=== PATIENT | female | born 1935 | race Caucasian/White ===

== ENCOUNTER 2017-03-16 18:18 | Emergency (ER) | payer MEDICARE, BC ==
[2017-03-16 18:33] VITALS: BP 114/79
--- NOTE | 2017-03-16 19:02 | EDM.PDOC ---
ED HPI GENERAL MEDICAL PROBLEM - General Chief Complaint: ENT Problem Stated Complaint: NOSE BLEED CANNOT STOP Time Seen by Provider: 03/16/17 18:43 Source of Information: Reports: Patient History Limitations: Reports: No Limitations - History of Present Illness INITIAL COMMENTS - FREE TEXT/NARRATIVE: 81 yo presents with nose bleed that has been bleeding off and on for the last 3 days. denies trauma to nose. states she was staying at her sons house which was very dry. She has now returned home. current episode started 3 hours ago. Denies nausea or emesis. Has not had nose bleed before. She is her today with her son. - Related Data Allergies Allergy/AdvReac Type Severity Reaction Status Date / Time chloroxine [From Capitrol] Allergy Hives Verified 03/29/15 10:04 Home Meds: Home Meds *Calcium With Vit D 1 tab PO BID 09/14/13 [History] Aspirin [Malachi Chewable] 81 mg PO DAILY 09/14/13 [History] Carvedilol [Coreg] 25 mg PO DAILY 09/14/13 [History] Clopidogrel [Plavix] 75 mg PO DAILY 09/14/13 [History] Ezetimibe [Zetia] 10 mg PO DAILY 09/14/13 [History] Fish Oil/DHA/EPA [Fish Oil 1,200 MG] 1 each PO DAILY 09/14/13 [History] Furosemide [Lasix] 40 mg PO DAILY 09/14/13 [History] Nitroglycerin [Nitroquick] 0.4 mg SL ASDIRECTED PRN 09/14/13 [History] amLODIPine [Norvasc] 10 mg PO DAILY 09/14/13 [History] atorvaSTATin Calcium [Atorvastatin Calcium] 80 mg PO BEDTIME 09/14/13 [History] traMADol [Ultram] 50 mg PO TID 09/14/13 [History] Albuterol [Proventil Neb Soln] 0.63 mg NEB DAILY 03/29/15 [History] Polymyxin B Sulf/Trimethoprim [Polymyxin B-Tmp Eye Drops] 2 drop TOP BID [History] Isosorbide Mononitrate [Imdur] 30 mg PO DAILY 04/04/15 [History] Past Medical History Other HEENT History: bacteria in eye Other Respiratory History: home oxygen Other Dermatologic History: "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" 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 Social & Family History - Tobacco Use Smoking Status *Q: Never Smoker Years of Tobacco use: 25 Packs/Tins Daily: 1 Used Tobacco, but Quit: Yes Month Tobacco Last Used: may Second Hand Smoke Exposure: No - Recreational Drug Use Recreational Drug Use: No ED ROS ENT - Review of Systems Review Of Systems: See Below Constitutional: Denies: Fever, Chills, Fatigue HEENT: Denies: Throat Swelling Respiratory: Denies: Shortness of Breath Cardiovascular: Denies: Chest Pain ED EXAM, ENT - Physical Exam Exam: See Below General Appearance: Alert, WD/WN, No Apparent Distress Nose: Active Bleeding, Dried Blood Mouth/Throat: Normal Inspection, Normal Gums, Normal Lips, Normal Oropharynx Head: Atraumatic, Normocephalic Respiratory/Chest: No Respiratory Distress, Other (home O2 at 2 L) Cardiovascular: Regular Rate, Rhythm ED ENT PROCEDURES - Epistaxis Procedure Indication: Epistaxis, Uncontrolled Recent anticoagulants/antiplatlets: No Uncontrolled HTN: No Recent septal/nasal surgery: No Site of bleeding: Left Nare Clearing of clots: Patient Blew Nose Topical Meds: Other (afrin) Ice pack to area: No Chemical cautery: Silver Nitrate Topical (attempted without success) Anterior Packing: Other (7.5 rhino rocket) Complications: No Course - Vital Signs Last Recorded V/S: Last Vital Signs Temp 37.4 C 03/16/17 18:49 Pulse 82 03/16/17 18:49 Resp 20 03/16/17 18:49 BP 114/79 03/16/17 18:49 Pulse Ox 90 L 03/16/17 18:49 - Orders/Labs/Meds Labs: Laboratory Tests 03/16/17 Range/Units 19:02 Hgb 13.2 (12.0-15.0) g/dL Meds: Medications Discontinued Medications Generic Name Dose Route Start Last Admin Trade Name Freq PRN Reason Stop Dose Admin Oxymetazoline HCl 5 ml 03/16/17 19:37 03/16/17 19:48 Afrin Original 0.05% Nasal [place] TERESSA 03/16/17 19:38 5 ml ONETIME ONE Administration Silver Nitrate 1 each 03/16/17 19:25 03/16/17 19:48 Silver Nitrate TOP 03/16/17 19:26 1 each ONETIME ONE Administration Departure - Departure Time of Disposition: 20:02 Disposition: Home, Self-Care 01 Condition: Good Clinical Impression: Epistaxis - Discharge Information Referrals: PCP,None [Primary Care Provider] - Forms: ED Department Discharge Additional Instructions: Amoxicillin 500 mg twice daily for 3 days remove packing with primary care provider on Wed
[2017-03-16] MEDS ORDERED: Silver Nitrate Applicator Each TOP ONE (19:25)
[2017-03-16] MEDS ORDERED: Oxymetazoline 0.05% Nasal Spray 15 ML Bottle NAS ONE (19:37)
== END 2017-03-16 20:06 | disposition home or self-care (01) ==
LOC: JP.ED 18:18
DX: R04.0 Epistaxis (principal); Z87.891 Personal history of nicotine dependence; Z79.82 Long term (current) use of aspirin; Z79.02 Long term (current) use of antithrombotics/antiplatelets; Z79.899 Other long term (current) drug therapy; Z88.8 Allergy status to other drugs, medicaments and biological substances
CPT/HCPCS: 30903; 36415; 85018; 99284; A9270; 99283-25

== ENCOUNTER 2017-05-31 05:14 | Emergency (ER) | payer MEDICARE, BC ==
[2017-05-31 05:37] VITALS: BP 105/57
--- NOTE | 2017-05-31 05:39 | EDM.PDOC ---
ED HPI GENERAL MEDICAL PROBLEM - General Chief Complaint: ENT Problem Stated Complaint: NOSE BLEED Time Seen by Provider: 05/31/17 05:15 Source of Information: Reports: Patient History Limitations: Reports: No Limitations - History of Present Illness INITIAL COMMENTS - FREE TEXT/NARRATIVE: 81-year-old female with a left-sided epistaxis for the past hour. She is O2 dependent, delivered to nasal cannula and tends to have a dry nose in the wintertime. She needed a packing in the nares and February. No fevers or chills, no cold symptoms. Onset: Sudden Duration: Hour(s): (Over one hour) Severity: Moderate - Related Data Allergies Allergy/AdvReac Type Severity Reaction Status Date / Time chloroxine [From Capitrol] Allergy Hives Verified 03/29/15 10:04 Home Meds: Home Meds *Calcium With Vit D 1 tab PO BID 09/14/13 [History] Aspirin [Malachi Chewable] 81 mg PO DAILY 09/14/13 [History] Carvedilol [Coreg] 25 mg PO DAILY 09/14/13 [History] Clopidogrel [Plavix] 75 mg PO DAILY 09/14/13 [History] Ezetimibe [Zetia] 10 mg PO DAILY 09/14/13 [History] Fish Oil/DHA/EPA [Fish Oil 1,200 MG] 1 each PO DAILY 09/14/13 [History] Furosemide [Lasix] 40 mg PO DAILY 09/14/13 [History] Nitroglycerin [Nitroquick] 0.4 mg SL ASDIRECTED PRN 09/14/13 [History] amLODIPine [Norvasc] 10 mg PO DAILY 09/14/13 [History] atorvaSTATin Calcium [Atorvastatin Calcium] 80 mg PO BEDTIME 09/14/13 [History] traMADol [Ultram] 50 mg PO TID 09/14/13 [History] Polymyxin B Sulf/Trimethoprim [Polymyxin B-Tmp Eye Drops] 2 drop TOP BID [History] Isosorbide Mononitrate [Imdur] 30 mg PO DAILY 04/04/15 [History] Past Medical History Other HEENT History: bacteria in eye Other Respiratory History: home oxygen Other 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 Denies: Shortness of Breath Cardiovascular: Denies: Chest Pain GI/Abdominal: Denies: Nausea, Vomiting ED EXAM, ENT - Physical Exam Exam: See Below Exam Limited By: No Limitations General Appearance: Alert, No Apparent Distress Nose: Active Bleeding (Left nares) Head: Atraumatic Respiratory/Chest: No Respiratory Distress Course - Vital Signs Last Recorded V/S: Last Vital Signs Temp 99.1 F 05/31/17 05:35 Pulse 67 05/31/17 05:35 Resp 20 05/31/17 05:35 BP 105/57 L 05/31/17 05:35 Pulse Ox 90 L 05/31/17 06:00 - Re-Assessments/Exams Free Text/Narrative Re-Assessment/Exam: 05/31/17 05:36 After external pressure did not stop the bleeding after 10 minutes, the patient blew all the clots out of the right and left nares and a 5.5 cm rapid Rhino was placed and the left nares. Homeostasis was achieved and she tolerated the procedure well. She'll return in 2 mornings to have the packing removed. Departure - Departure Time of Disposition: 06:08 Disposition: Home, Self-Care 01 Condition: Good Clinical Impression: Epistaxis - Discharge Information Instructions: Nosebleed, [id number] Referrals: Eusebia Guzman CNM [Primary Care Provider] - Forms: ED Department Discharge Care Plan Goals: Return Friday morning for packing removal. Return sooner if bleeding recurs despite packing or you develop other concerns.
== END 2017-05-31 06:11 | disposition home or self-care (01) ==
LOC: JP.ED 05:14
DX: R04.0 Epistaxis (principal); Z88.8 Allergy status to other drugs, medicaments and biological substances; Z79.899 Other long term (current) drug therapy
CPT/HCPCS: 30901; 99283; 99283-25

== ENCOUNTER 2017-10-09 06:21 | Day surgery (SDC) | payer MEDICARE, BC ==
[2017-10-09] MEDS ORDERED: Sodium Chloride 0.9% 10 ML Syringe FLUSH PRN (07:00)
[2017-10-09 08:06] VITALS: BP 143/63
--- NOTE | 2017-10-09 08:19 | OR ---
DATE OF PROCEDURE: 10/09/2017 POSTOPERATIVE CARE: Postoperative care will be provided mainly at the [address] [place] [address] [facility] in conjunction with [facility]. PREOPERATIVE DIAGNOSIS: Cataract, right eye. POSTOPERATIVE DIAGNOSIS: Cataract, right eye. PROCEDURES: Cataract extraction, phacoemulsification with intraocular lens placement, right eye. ANESTHESIA: Topical and intracameral. ESTIMATED BLOOD LOSS: Minimal. COMPLICATIONS: None. PATHOLOGY SPECIMENS: None. SURGICAL FINDINGS: None. INDICATION FOR PROCEDURE: The patient is an 82-year-old female with history of a visually significant cataract in the right eye, which interfered with activities of daily living. This consisted of a nuclear sclerosis cataract. Following careful discussion of the risks, benefits and alternatives to cataract extraction with intraocular lens placement including blindness and , the patient elected to proceed, and informed, written consent was obtained prior to the procedure. DESCRIPTION OF THE PROCEDURE: The patient was previously identified, and a frank placed above the right eye. All sources, including the patient, indicated that the right eye was the correct eye. The patient was subsequently taken to the operating room where standard monitors were applied. The patient was then prepped and draped in the usual sterile fashion for ophthalmic surgery. Attention was first directed at the 12 o'clock position where a paracentesis port was fashioned. Shugar solution followed by Viscoat was instilled into the eye. Attention was then directed to the 8:30 position where a triplanar incision was made in a near-clear manner using a keratome. A continuous capsulorrhexis was then made using a combination of the cystotome and Utrata forceps. Hydrodissection was achieved using a balanced salt solution, and the lens rotated nicely. Phacoemulsification was then done using a modified [id number] technique without complication. Phaco time was 14.80 CDE. The remaining cortex was removed using the irrigation/aspiration handpiece. Provisc was then instilled into the eye. A Technis lens, model [id number], at 22.5 diopters was then placed in the capsular bag using an Pemberwick injector. The remaining viscoelastic was removed using the irrigation/aspiration forceps. All wounds were then checked and found to be watertight. The lid speculum and drapes were removed. Maxitrol ointment was placed in the patient's right eye, and the eye was shielded. The patient tolerated the procedure well. The patient was instructed to follow up tomorrow. All needle and sponge counts were correct at the end of the procedure. Mariya Wharton MD /[id number]
== END 2017-10-09 08:31 | disposition home or self-care (01) ==
LOC: JP.SDS 06:21
PROVIDERS: ATTEND Ophthalmology
DX: H25.11 Age-related nuclear cataract, right eye (principal); J44.9 Chronic obstructive pulmonary disease, unspecified; I11.0 Hypertensive heart disease with heart failure; I50.9 Heart failure, unspecified; Z88.8 Allergy status to other drugs, medicaments and biological substances
CPT/HCPCS: 66984; J7050

== ENCOUNTER 2018-06-22 16:51 | Emergency (ER) | payer MEDICARE, BC ==
[2018-06-22] MEDS ORDERED: Sodium Chloride 0.9% 10 ML Syringe FLUSH PRN (17:44)
[2018-06-22] MEDS ORDERED: Lactated Ringers 1,000 ML IV ONE (17:44)
[2018-06-22] MEDS ORDERED: Albuterol/Ipratropium 3.0-0.5 MG/3 ML Neb Soln NEB ONE (17:47)
--- NOTE | 2018-06-22 17:49 | EDM.PDOC ---
<OfficerMathew - Last Filed: 06/22/18 17:47> ED HPI GENERAL MEDICAL PROBLEM - General Chief Complaint: Respiratory Problem Stated Complaint: ILLNESS FROM THE CLINIC Time Seen by Provider: 06/22/18 17:39 Source of Information: Reports: Patient, Family, RN Notes Reviewed History Limitations: Reports: No Limitations - History of Present Illness INITIAL COMMENTS - FREE TEXT/NARRATIVE: 82-year-old female presents emergency department today complaint of shortness of breath, she has a known history of COPD is oxygen dependent she states over the last couple days she's had problems with her oxygen at home and has been hypoxic at home. She denies any fevers does produce thick yellow sputum - Related Data Allergies Allergy/AdvReac Type Severity Reaction Status Date / Time chloroxine [From Capitrol] Allergy Hives Verified 10/09/17 06:50 Home Meds: Home Meds Aspirin [Malachi Chewable] 81 mg PO DAILY 09/14/13 [History] Carvedilol [Coreg] 25 mg PO DAILY 09/14/13 [History] Clopidogrel [Plavix] 75 mg PO DAILY 09/14/13 [History] Ezetimibe [Zetia] 10 mg PO DAILY 09/14/13 [History] Fish Oil/DHA/EPA [Fish Oil 1,200 MG] 1 each PO DAILY 09/14/13 [History] Furosemide [Lasix] 40 mg PO DAILY 09/14/13 [History] Nitroglycerin [Nitroquick] 0.4 mg SL ASDIRECTED PRN 09/14/13 [History] amLODIPine [Norvasc] 10 mg PO DAILY 09/14/13 [History] atorvaSTATin Calcium [Atorvastatin Calcium] 80 mg PO BEDTIME 09/14/13 [History] traMADol [Ultram] 50 mg PO TID 09/14/13 [History] Isosorbide Mononitrate [Imdur] 30 mg PO DAILY 04/04/15 [History] Albuterol [Proventil Neb Soln] 1 ampule NEB Q4HR PRN 10/02/17 [History] Albuterol/Ipratropium [Combivent Respimat] 1 puff IH QID 10/02/17 [History] Alendronate [Fosamax] 70 mg PO WEEKLY 10/02/17 [History] Calcium Carbonate/Vitamin D3 [Calcium Carbonate/Vitamin D 600 MG-200 Unit] 1 tab PO DAILY 10/02/17 [History] Moxifloxacin [Vigamox 0.5% Ophth Soln] 1 drop EYERT QID 10/02/17 [History] prednisoLONE acetate [Pred Forte 1% Ophth Susp] 1 drop EYERT QID 10/02/17 [ History] Past Medical History HEENT History: Reports: Cataract, Impaired Vision Other HEENT History: bacteria in eye Cardiovascular History: Reports: Arrhythmia, High Cholesterol, Hypertension, Pacemaker, Stents Respiratory History: Reports: COPD, Sleep Apnea 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 History: Reports: Musculoskeletal History: Reports: Back Pain, Chronic, Fracture, Other (See Below ) Other Musculoskeletal History: steroid injections into both knees as needed Endocrine/Metabolic History: Reports: Obesity/BMI 30+ Dermatologic History: Reports: Benign Melanoma Other Dermatologic History: "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 - Infectious Disease History Infectious Disease History: Reports: Chicken Pox, Measles, Mumps - Past Surgical History HEENT Surgical History: Reports: Cataract Surgery Cardiovascular Surgical History: Reports: Carotid Endarterectomy, Pacer Respiratory Surgical History: Reports: None GI Surgical History: Reports: Appendectomy Endocrine Surgical History: Reports: None Musculoskeletal Surgical History: Reports: None Dermatological Surgical History: Reports: None Social & Family History - Tobacco Use Smoking Status *Q: Former Smoker Used Tobacco, but Quit: Yes Month/Year Tobacco Last Used: many years ago - Caffeine Use Caffeine Use: Reports: None - Recreational Drug Use Recreational Drug Use: No ED ROS GENERAL - Review of Systems Review Of Systems: See Below Constitutional: Denies: Fever, Chills HEENT: Reports: No Symptoms Respiratory: Reports: Shortness of Breath, Cough, Sputum Cardiovascular: Reports: No Symptoms GI/Abdominal: Reports: No Symptoms : Reports: No Symptoms Musculoskeletal: Reports: No Symptoms Skin: Reports: No Symptoms ED EXAM, GENERAL - Physical Exam Exam: See Below Exam Limited By: No Limitations General Appearance: Alert, WD/WN, No Apparent Distress Respiratory/Chest: No Respiratory Distress, No Accessory Muscle Use, Decreased Breath Sounds, Wheezing Cardiovascular: Regular Rate, Rhythm, No Murmur Back Exam: Normal Inspection, Full Range of Motion. No: CVA Tenderness (R), CVA Tenderness (L) Course - Vital Signs Last Recorded V/S: Last Vital Signs Temp 97 F 06/22/18 17:20 Pulse 64 06/22/18 19:54 Resp 11 L 06/22/18 19:54 BP 186/65 H 06/22/18 20:15 Pulse Ox 94 L 06/22/18 19:54 - Orders/Labs/Meds Orders: Active Orders 24 hr Category Date Time Status BIPAP [RT BiPAP/CPAP] [RC] ASDIRECTED Care 06/22/18 17:47 Active Peripheral IV Care [RC] . DIRECTED Care 06/22/18 17:45 Active RT Aerosol Therapy [RC] ASDIRECTED Care 06/22/18 17:47 Active Chest 1V Frontal [CR] Urgent Exams 06/22/18 17:44 Taken CULTURE RESPIRATORY + SMEAR [RM] Urgent Lab 06/22/18 17:44 Ordered Peripheral IV Insertion Adult [OM.PC] Urgent Oth 06/22/18 17:44 Ordered Labs: Laboratory Tests 06/22/18 06/22/18 06/22/18 Range/Units 17:44 17:44 17:44 WBC 12.5 H (4.5-11.0) K/uL RBC 4.92 (3.30-5.50) M/uL Hgb 13.9 (12.0-15.0) g/dL Hct 43.5 (36.0-48.0) % MCV 88 (80-98) fL MCH 28 (27-31) pg MCHC 32 (32-36) % Plt Count 299 (150-400) K/uL Neut % (Auto) 72 H (36-66) % Lymph % (Auto) 14 L (24-44) % Bates % (Auto) 10 H (2-6) % Eos % (Auto) 5 H (2-4) % Baso % (Auto) 1 (0-1) % Puncture Site Rt brachial ABG pH 7.458 H (7.350-7.450) ABG pCO2 38.6 (35.0-42.0) mmHg ABG pO2 80.0 (75.0-100.0) mmHg ABG HCO3 27.0 H (22.0-26.0) mmol/L ABG Total CO2 23.3 (21.0-25.0) mmol/L ABG O2 Saturation 95.1 (95.0-98.0) % ABG O2 Content 18.8 (15.0-23.0) %vol ABG Base Excess 3.5 mm/L ABG Hemoglobin 14.4 (12.0-16.0) g/dL ABG Oxyhemoglobin 92.8 % ABG Carboxyhemoglobin 1.7 H (0.0-1.6) % ABG Methemoglobin 0.7 % Alvin Test TNP O2 Delivery Device Simple mask Oxygen Flow Rate 8 L Sodium 140 (140-148) mmol/L Potassium 3.4 L (3.6-5.2) mmol/L Chloride 101 (100-108) mmol/L Carbon Dioxide 29 (21-32) mmol/L Anion Gap 13.4 (5.0-14.0) mmol/L BUN 19 H (7-18) mg/dL Creatinine 1.6 H (0.6-1.0) mg/dL Est Cr Clr Drug Dosing 0.97 mL/min Estimated GFR (MDRD) 31 L (>60) Glucose 111 H (74-106) mg/dL Calcium 10.9 H (8.5-10.1) mg/dL Total Bilirubin 0.7 (0.2-1.0) mg/dL AST 18 (15-37) U/L ALT 24 (12-78) U/L Alkaline Phosphatase 86 (46-116) U/L Troponin I 0.055 (0.000-0.056) ng/mL Total Protein 7.4 (6.4-8.2) g/dL Albumin 3.8 (3.4-5.0) g/dL Globulin 3.6 H (2.3-3.5) g/dL Albumin/Globulin Ratio 1.1 L (1.2-2.2) Meds: Medications Discontinued Medications Generic Name Dose Route Start Last Admin Trade Name Freq PRN Reason Stop Dose Admin Albuterol/Ipratropium 3 ml 06/22/18 17:47 06/22/18 18:12 Duoneb 3.0-0.5 Mg/3 Ml NEB 06/22/18 17:48 3 ml ONETIME ONE Administration Furosemide 80 mg 06/22/18 18:31 06/22/18 18:46 Lasix IVPUSH 06/22/18 18:32 80 mg ONETIME ONE Administration Lactated Ringer's 1,000 mls @ 500 mls/hr 06/22/18 17:44 06/22/18 18:13 Ringers, Lactated IV 06/22/18 19:43 500 mls/hr ASDIRECTED ONE Administration Methylprednisolone Sodium Succinate 125 mg 06/22/18 18:04 06/22/18 18:13 Solu-Medrol IVPUSH 06/22/18 18:05 125 mg ONETIME ONE Administration Sodium Chloride 10 ml 06/22/18 17:44 06/22/18 18:19 Saline Flush FLUSH 10 ml ASDIRECTED PRN Administration Keep Vein Open Departure - Departure Disposition: Home, Self-Care 01 Clinical Impression: COPD exacerbation, Bronchitis Congestive heart failure Qualifiers: Heart failure type: combined systolic and diastolic Heart failure chronicity: acute on chronic Qualified Code(s): I50.43 - Acute on chronic combined systolic (congestive) and diastolic (congestive) heart failure - Discharge Information Instructions: Chronic Obstructive Pulmonary Disease, [id number] Referrals: PCP,None [Primary Care Provider] - Forms: ED Department Discharge Care Plan Goals: Take antibiotic as prescribed, start tonight. Starting tomorrow, take 4 pills of prednisone with your first meal daily for at least 5 days. Take 2 doses of Lasix, the second dose in the afternoon, for 3 consecutive days. Increase oxygen as needed, and return anytime if worsening despite treatment. <Marco Rodriguez - Last Filed: 06/22/18 22:16> Course - Re-Assessments/Exams Free Text/Narrative Re-Assessment/Exam: 06/22/18 19:26 Care turned over from Officer. Chest x-ray shows cardiomegaly and mild basilar atelectasis, blood gases were reassuring and relatively normal. Initially she needed BiPAP to keep saturations in the mid 90s. Labs returned reassuring as well. She was given 80 mg of IV Lasix along with 125 mg of IV Solu -Medrol. Within 60 minutes she appears 500 mL of urine. She wants to try to go home. 06/22/18 20:28 Patient urinated 5 times over the course of 2 hours, with 3 L of nasal cannula without BiPAP she was maintaining O2 saturations 88%. This is her baseline at home. She has O2 saturation monitors at home and never gets above 90. Her ABGs were reassuring, near normal. The rest of her labs were reassuring as well. She does have chronic renal failure. She'll be discharged with the recommendation of taking Lasix twice daily for the next 3 days, she'll be placed on a course of Zithromax, and 40 mg of prednisone daily for 5 days. Departure - Departure Time of Disposition: 20:43 Condition: Fair
[2018-06-22] MEDS ORDERED: methylPREDNISolone Sodium Succinate 125 MG/2 ML SDV IVPUSH ONE (18:04)
[2018-06-22] MEDS ORDERED: Furosemide 40 MG/4 ML VIAL IVPUSH ONE (18:31)
[2018-06-22 20:16] VITALS: BP 186/65
== END 2018-06-22 20:43 | disposition home or self-care (01) ==
LOC: JP.ED 16:51
DX: J44.1 Chronic obstructive pulmonary disease with (acute) exacerbation (principal); I11.0 Hypertensive heart disease with heart failure; I50.43 Acute on chronic combined systolic (congestive) and diastolic (congestive) heart failure; J40 Bronchitis, not specified as acute or chronic; Z88.8 Allergy status to other drugs, medicaments and biological substances; Z79.82 Long term (current) use of aspirin; Z79.899 Other long term (current) drug therapy; E78.00 Pure hypercholesterolemia, unspecified; Z95.0 Presence of cardiac pacemaker; Z87.891 Personal history of nicotine dependence
CPT/HCPCS: 36600; 71045; 80053; 82803; 84484; 85025; 87804; 94640; 94660; 96361; 96374; 96375; 99284; J1940; J2930; J7120; J7620-GY

== ENCOUNTER 2018-08-13 16:06 | Emergency (ER) | payer MEDICARE, BC ==
--- NOTE | 2018-08-13 18:16 | EDM.PDOC ---
ED HPI GENERAL MEDICAL PROBLEM - General Chief Complaint: General Stated Complaint: CONFUSION Time Seen by Provider: 08/13/18 18:05 Source of Information: Reports: Patient, Family History Limitations: Reports: Other (incomplete records) - History of Present Illness INITIAL COMMENTS - FREE TEXT/NARRATIVE: 82 yo female is brought in by her daughter for increasing confusion since late Friday. Had a doctor's appt on . that they missed. Has not discussed this increased confusion with her primary. Normally doctors in [place]. Has no specific complaints other than no BM for 3 days, anorexia, and confusion. Lives with daughter on [place]. Can only walk short distances due to weakness. Onset: Gradual Onset Date: 08/10/18 Duration: Day(s):, Getting Worse Location: Reports: Generalized Quality: Reports: Other (no pain) Severity: Moderate (weakness) Improves with: Reports: None Worsens with: Reports: Other (time) Context: Reports: Other (see HPI) Associated Symptoms: Reports: Confusion, Loss of Appetite, Weakness. 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: Other (see below) (none) - Related Data Allergies Allergy/AdvReac Type Severity Reaction Status Date / Time chloroxine [From Capitrol] Allergy Hives Verified 08/13/18 17:18 Home Meds: Home Meds Aspirin [Malachi Chewable] 81 mg PO DAILY 09/14/13 [History] Carvedilol [Coreg] 25 mg PO DAILY 09/14/13 [History] Clopidogrel [Plavix] 75 mg PO DAILY 09/14/13 [History] Ezetimibe [Zetia] 10 mg PO DAILY 09/14/13 [History] Fish Oil/DHA/EPA [Fish Oil 1,200 MG] 1 each PO DAILY 09/14/13 [History] Furosemide [Lasix] 40 mg PO DAILY 09/14/13 [History] Nitroglycerin [Nitroquick] 0.4 mg SL ASDIRECTED PRN 09/14/13 [History] amLODIPine [Norvasc] 10 mg PO DAILY 09/14/13 [History] atorvaSTATin Calcium [Atorvastatin Calcium] 80 mg PO BEDTIME 09/14/13 [History] traMADol [Ultram] 50 mg PO TID 09/14/13 [History] Isosorbide Mononitrate [Imdur] 30 mg PO DAILY 04/04/15 [History] Albuterol [Proventil Neb Soln] 1 ampule NEB Q4HR PRN 10/02/17 [History] Albuterol/Ipratropium [Combivent Respimat] 1 puff IH QID 10/02/17 [History] Alendronate [Fosamax] 70 mg PO WEEKLY 10/02/17 [History] Calcium Carbonate/Vitamin D3 [Calcium Carbonate/Vitamin D 600 MG-200 Unit] 1 tab PO DAILY 10/02/17 [History] Past Medical History HEENT History: Reports: Cataract, Impaired Vision Other HEENT History: bacteria in eye Cardiovascular History: Reports: Arrhythmia, High Cholesterol, Hypertension, Pacemaker, Stents Respiratory History: Reports: COPD, Sleep Apnea Other Respiratory History: home oxygen 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 History: Reports: None 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: Musculoskeletal History: Reports: Back Pain, Chronic, Fracture, Other (See Below ) Other Musculoskeletal History: steroid injections into both knees as needed Endocrine/Metabolic History: Reports: Obesity/BMI 30+ Dermatologic History: Reports: Benign Melanoma Other Dermatologic History: "bumps" 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 - Infectious Disease History Infectious Disease History: Reports: Chicken Pox, Measles, Mumps - Past Surgical History HEENT Surgical History: Reports: Cataract Surgery Cardiovascular Surgical History: Reports: Carotid Endarterectomy, Pacer Respiratory Surgical History: Reports: None GI Surgical History: Reports: Appendectomy Endocrine Surgical History: Reports: None Musculoskeletal Surgical History: Reports: None Dermatological Surgical History: Reports: None Social & Family History - Tobacco Use Smoking Status *Q: Former Smoker Used Tobacco, but Quit: Yes Month/Year Tobacco Last Used: 20 - Caffeine Use Caffeine Use: Reports: None - Recreational Drug Use Recreational Drug Use: No ED ROS GENERAL - Review of Systems Review Of Systems: See Below Constitutional: Reports: Weakness, Decreased Appetite HEENT: Reports: No Symptoms Respiratory: Reports: No Symptoms Cardiovascular: Reports: No Symptoms Endocrine: Reports: No Symptoms GI/Abdominal: Reports: Constipation (last BM 3 days ago), Decreased Appetite. Denies: Abdominal Pain, Black Stool, Bloody Stool, Diarrhea, Distension, Flatus , Hematemesis, Hematochezia, Melena, Nausea, Vomiting : Reports: No Symptoms Musculoskeletal: Reports: No Symptoms Skin: Reports: No Symptoms Neurological: Reports: No Symptoms Psychiatric: Reports: Confusion ED EXAM, GENERAL - Physical Exam Exam: See Below Exam Limited By: No Limitations General Appearance: Alert, WD/WN, No Apparent Distress Eye Exam: Bilateral Eye: Normal Inspection Ears: Normal External Exam, Normal Canal, Hearing Grossly Normal, Normal TMs Ear Exam: Bilateral Ear: Auricle Normal, Canal Normal, TM normal Nose: Normal Inspection, No Blood Throat/Mouth: Normal Inspection, Normal Lips, Normal Oropharynx, Normal Voice, No Airway Compromise Head: Atraumatic, Normocephalic Neck: Normal Inspection Respiratory/Chest: No Respiratory Distress, Lungs Clear, No Accessory Muscle Use , Decreased Breath Sounds Cardiovascular: Regular Rate, Rhythm, No Edema, Systolic Murmur GI/Abdominal: Normal Bowel Sounds, Soft, Non-Tender, No Distention Back Exam: Normal Inspection. No: CVA Tenderness (R), CVA Tenderness (L) Extremities: Normal Inspection, Normal Range of Motion, Non-Tender, No Pedal Edema Neurological: Alert, Oriented, CN II-XII Intact, Normal Cognition, No Motor/ Sensory Deficits Psychiatric: Normal Affect, Normal Mood Skin Exam: Warm, Dry, Intact, Normal Color, No Rash EKG INTERPRETATION EKG Date: 08/13/18 Time: 19:25 Rhythm: Other (paced rhythm) Rate (Beats/Min): 64 [place]: Normal P-Wave: Present QRS: Normal ST-T: Normal QT: Normal Comparison: NA - No Prior EKG Course - Vital Signs Text/Narrative:: Discussed @ Dr. Handy, hospitalist at [facility] @ 1950h Last Recorded V/S: Last Vital Signs Temp 36.7 C 08/13/18 17:22 Pulse 60 08/13/18 19:35 Resp 8 L 08/13/18 19:35 BP 158/68 H 08/13/18 19:35 Pulse Ox 90 L 08/13/18 19:35 - Orders/Labs/Meds Orders: Active Orders 24 hr Category Date Time Status EKG Documentation Completion [RC] ASDIRECTED Care 08/13/18 19:01 Active CULTURE URINE [RM] Stat Lab 08/13/18 18:23 Received NS + KCl 20mEq/L [Normal Saline with 20 mEq KCl] 1,000 Med 08/13/18 19:00 Active ml IV ASDIRECTED EKG 12 Lead [EK] Routine Ther 08/13/18 19:00 Ordered Medication Orders Potassium Chloride/Sodium Chloride (Normal Saline With 20 Meq Kcl) 1,000 mls @ 125 mls/hr IV ASDIRECTED ERICKA Last Admin: 08/13/18 19:28 Dose: 125 mls/hr Labs: Laboratory Tests 08/13/18 08/13/18 08/13/18 Range/Units 18:04 18:31 18:31 WBC 11.0 (4.5-11.0) K/uL RBC 4.44 (3.30-5.50) M/uL Hgb 12.9 (12.0-15.0) g/dL Hct 39.4 (36.0-48.0) % MCV 89 (80-98) fL MCH 29 (27-31) pg MCHC 33 (32-36) % Plt Count 268 (150-400) K/uL Sodium 139 L (140-148) mmol/L Potassium 3.2 L (3.6-5.2) mmol/L Chloride 99 L (100-108) mmol/L Carbon Dioxide 38 H (21-32) mmol/L Anion Gap 5.2 (5.0-14.0) mmol/L BUN 27 H (7-18) mg/dL Creatinine 2.1 H (0.6-1.0) mg/dL Est Cr Clr Drug Dosing 16.50 mL/min Estimated GFR (MDRD) 22 L (>60) Glucose 106 (74-106) mg/dL Calcium 16.1 H* D (8.5-10.1) mg/dL Magnesium (1.8-2.4) mg/dL Troponin I 0.146 H* (0.000-0.056) ng/mL Urine Color Yellow Urine Appearance Clear Urine pH 7.0 (4.5-8.0) Ur Specific [place] 1.010 (1.008-1.030) Urine Protein Negative (NEGATIVE) mg/dL Urine Glucose (UA) Normal (NEGATIVE) mg/dL Urine Ketones Negative (NEGATIVE) mg/dL Urine Occult Blood Negative (NEGATIVE) Urine Nitrite Negative (NEGATIVE) Urine Bilirubin Negative (NEGATIVE) Urine Urobilinogen Normal (NORMAL) mg/dL Ur Leukocyte Esterase Moderate (NEGATIVE) Urine RBC 5-10 H (0-5) Urine WBC 10-20 H (0-5) Ur Epithelial Cells Few Amorphous Sediment Few Urine Bacteria Not seen Urine Mucus Not seen 08/13/18 Range/Units 19:21 WBC (4.5-11.0) K/uL RBC (3.30-5.50) M/uL Hgb (12.0-15.0) g/dL Hct (36.0-48.0) % MCV (80-98) fL MCH (27-31) pg MCHC (32-36) % Plt Count (150-400) K/uL Sodium (140-148) mmol/L Potassium (3.6-5.2) mmol/L Chloride (100-108) mmol/L Carbon Dioxide (21-32) mmol/L Anion Gap (5.0-14.0) mmol/L BUN (7-18) mg/dL Creatinine (0.6-1.0) mg/dL Est Cr Clr Drug Dosing mL/min Estimated GFR (MDRD) (>60) Glucose (74-106) mg/dL Calcium (8.5-10.1) mg/dL Magnesium 1.5 L (1.8-2.4) mg/dL Troponin I (0.000-0.056) ng/mL Urine Color Urine Appearance Urine pH (4.5-8.0) Ur Specific [place] (1.008-1.030) Urine Protein (NEGATIVE) mg/dL Urine Glucose (UA) (NEGATIVE) mg/dL Urine Ketones (NEGATIVE) mg/dL Urine Occult Blood (NEGATIVE) Urine Nitrite (NEGATIVE) Urine Bilirubin (NEGATIVE) Urine Urobilinogen (NORMAL) mg/dL Ur Leukocyte Esterase (NEGATIVE) Urine RBC (0-5) Urine WBC (0-5) Ur Epithelial Cells Amorphous Sediment Urine Bacteria Urine Mucus Meds: Medications Generic Name Dose Route Start Last Admin Trade Name Freq PRN Reason Stop Dose Admin Potassium Chloride/Sodium Chloride 1,000 mls @ 125 mls/hr 08/13/18 19:00 19:28 Normal Saline With 20 Meq Kcl IV 125 mls/hr ASDIRECTED ERICKA Administration Discontinued Medications Generic Name Dose Route Start Last Admin Trade Name Freq PRN Reason Stop Dose Admin Bisacodyl 10 mg 08/13/18 18:39 Dulcolax RECTAL 08/13/18 18:40 ONETIME ONE Cephalexin 500 mg 08/13/18 18:21 08/13/18 18:26 Keflex PO 08/13/18 18:22 500 mg ONETIME ONE Administration Glycerin 1 supp 08/13/18 18:39 Sani-Supp Adult RECTAL 08/13/18 18:40 ONETIME ONE - Radiology Interpretation Free Text/Narrative:: CXR-nothing acute Departure - Departure Time of Disposition: 20:03 Disposition: DC/Tfer to Acute Hospital 02 Condition: Fair Clinical Impression: Elevated troponin, Hypercalcemia, Weakness, Hypokalemia, Chronic renal failure , stage 4 (severe) - Discharge Information *PRESCRIPTION DRUG MONITORING PROGRAM REVIEWED*: No *COPY OF PRESCRIPTION DRUG MONITORING REPORT IN PATIENT LIZZY: No Referrals: PCP,None [Primary Care Provider] - Forms: ED Department Discharge - My Orders Last 24 Hours: My Active Orders 08/13/18 18:23 CULTURE URINE [RM] Stat 08/13/18 19:00 NS + KCl 20mEq/L [Normal Saline with 20 mEq KCl] 1,000 ml IV ASDIRECTED EKG 12 Lead [EK] Routine 08/13/18 19:01 EKG Documentation Completion [RC] ASDIRECTED - Assessment/Plan Last 24 Hours: My Active Orders 08/13/18 18:23 CULTURE URINE [RM] Stat 08/13/18 19:00 NS + KCl 20mEq/L [Normal Saline with 20 mEq KCl] 1,000 ml IV ASDIRECTED EKG 12 Lead [EK] Routine 08/13/18 19:01 EKG Documentation Completion [RC] ASDIRECTED
[2018-08-13] MEDS ORDERED: Cephalexin 250 MG Cap PO ONE (18:21)
[2018-08-13] MEDS ORDERED: Glycerin Adult 2.1 GM Supp RECTAL ONE (18:39)
[2018-08-13] MEDS ORDERED: Bisacodyl 10 MG Supp RECTAL ONE (18:39)
[2018-08-13] MEDS ORDERED: NS + KCl 20mEq/L 1,000 ML IV SCH (19:00)
--- NOTE | 2018-08-13 19:26 | CRLCR ---
INDICATION: Confusion TECHNIQUE: Chest 2 views COMPARISON: Chest x-ray 06/22/2018 FINDINGS: Cardiovascular and mediastinum: Mild cardiomegaly with atherosclerotic calcification and left-sided dual lead pacemaker with tips at the right atrial and right ventricular level. Lungs and pleural spaces: Mild hyperinflation without pleural effusion or pneumothorax Bones and soft tissues: Old compression fracture mid thoracic spine. IMPRESSION: 1. Mild hyperinflation without acute pulmonary consolidation. 2. Cardiomegaly with atherosclerotic calcification. Dictated by Kian Woodward MD @ Aug 13 2018 7:21PM Signed by Dr. Kian Woodward @ Aug 13 2018 7:23PM
[2018-08-13 19:36] VITALS: BP 158/68
== END 2018-08-13 21:15 ==
LOC: JP.ED 16:06
DX: I12.9 Hypertensive chronic kidney disease with stage 1 through stage 4 chronic kidney disease, or unspecified chronic kidney disease (principal); N18.4 Chronic kidney disease, stage 4 (severe); E87.6 Hypokalemia; E83.52 Hypercalcemia; R53.1 Weakness; J44.9 Chronic obstructive pulmonary disease, unspecified; E78.00 Pure hypercholesterolemia, unspecified; Z87.891 Personal history of nicotine dependence; R79.89 Other specified abnormal findings of blood chemistry; Z88.8 Allergy status to other drugs, medicaments and biological substances; Z79.82 Long term (current) use of aspirin; Z95.0 Presence of cardiac pacemaker; Z79.899 Other long term (current) drug therapy; Z95.5 Presence of coronary angioplasty implant and graft
CPT/HCPCS: 36415; 71046; 80048; 81001; 83735; 84484; 85027; 87086; 93005; 93010; 96360; 96361; 99285-25; A9270-GY; J3480

== ENCOUNTER 2018-08-20 16:59 | Emergency (ER) | payer MEDICARE, BC ==
[2018-08-20] MEDS ORDERED: Metoprolol Tartrate 50 MG Tab PO ONE (18:19)
--- NOTE | 2018-08-20 18:22 | EDM.PDOC ---
ED HPI GENERAL MEDICAL PROBLEM - General Chief Complaint: Cardiovascular Problem Stated Complaint: HIGH BLOOD PRESSURE/HIGH PULSE Time Seen by Provider: 08/20/18 18:05 Source of Information: Reports: Family, Old Records History Limitations: Reports: No Limitations - History of Present Illness INITIAL COMMENTS - FREE TEXT/NARRATIVE: 82 yo female is brought in by her family for BP elevation. She has no sx's of this. Was recently hospitalized in [facility] for hypercalcemia, a non-STEMI , CHF, and CRF. During that admission Coreg was stopped and metoprolol was started. Her BP has been running high since discharge and they have been slowly raising her metoprolol dose. Family became alarmed when her BP was over 200 systolic even with a 25 mg increase in her Toprol XL dose. They usually get there primary care in , but since this is closer have been coming here when they want to utilize ER services. 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) (metoprolol dose increased by 25 mg today) - Related Data Allergies Allergy/AdvReac Type Severity Reaction Status Date / Time chloroxine [From Capitrol] Allergy Hives Verified 08/13/18 17:18 Home Meds: Home Meds Aspirin [Malachi Chewable] 81 mg PO DAILY 09/14/13 [History] Clopidogrel [Plavix] 75 mg PO DAILY 09/14/13 [History] Ezetimibe [Zetia] 10 mg PO DAILY 09/14/13 [History] Fish Oil/DHA/EPA [Fish Oil 1,200 MG] 1 each PO DAILY 09/14/13 [History] Furosemide [Lasix] 40 mg PO DAILY PRN 09/14/13 [History] Nitroglycerin [Nitroquick] 0.4 mg SL ASDIRECTED PRN 09/14/13 [History] atorvaSTATin Calcium [Atorvastatin Calcium] 80 mg PO BEDTIME 09/14/13 [History] traMADol [Ultram] 50 mg PO TID PRN 09/14/13 [History] Isosorbide Mononitrate [Imdur] 60 mg PO DAILY 04/04/15 [History] Albuterol [Proventil Neb Soln] 1 ampule NEB Q4HR PRN 10/02/17 [History] Albuterol/Ipratropium [Combivent Respimat] 1 puff IH QID 10/02/17 [History] Magnesium Chloride [Mag-64] 64 mg PO BID 08/20/18 [History] Metoprolol Succinate [Toprol XL 100mg] 100 mg PO DAILY 08/20/18 [History] Past Medical History HEENT History: Reports: Cataract, Impaired Vision Other HEENT History: bacteria in eye Cardiovascular History: Reports: Arrhythmia, High Cholesterol, Hypertension, Pacemaker, Stents Respiratory History: Reports: COPD, Sleep Apnea Other Respiratory History: home oxygen 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 History: Reports: 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: Musculoskeletal History: Reports: Back Pain, Chronic, Fracture, Other (See Below ) Other Musculoskeletal History: steroid injections into both knees as needed Endocrine/Metabolic History: Reports: Obesity/BMI 30+ Dermatologic History: Reports: Benign Melanoma Other Dermatologic History: "bumps" 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 coordinator 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 look at - Infectious Disease History Infectious Disease History: Reports: Chicken Pox, Measles, Mumps - Past Surgical History HEENT Surgical History: Reports: Cataract Surgery Cardiovascular Surgical History: Reports: Carotid Endarterectomy, Pacer Respiratory Surgical History: Reports: None GI Surgical History: Reports: Appendectomy Endocrine Surgical History: Reports: None Musculoskeletal Surgical History: Reports: None Dermatological Surgical History: Reports: None Social & Family History - Caffeine Use Caffeine Use: Reports: None ED ROS GENERAL - Review of Systems Review Of Systems: See Below Constitutional: Reports: No Symptoms HEENT: Reports: No Symptoms Respiratory: Reports: No Symptoms Cardiovascular: Reports: No Symptoms Endocrine: Reports: No Symptoms GI/Abdominal: Reports: No Symptoms : Reports: No Symptoms Musculoskeletal: Reports: No Symptoms Skin: Reports: No Symptoms Neurological: Reports: No Symptoms Psychiatric: Reports: No Symptoms ED EXAM, GENERAL - Physical Exam Exam: See Below Exam Limited By: No Limitations General Appearance: Alert, WD/WN, No Apparent Distress Eye Exam: Bilateral Eye: Normal Inspection Ears: Normal External Exam, Normal Canal, Hearing Grossly Normal, Normal TMs Ear Exam: Bilateral Ear: Auricle Normal, Canal Normal, TM normal Nose: Normal Inspection, Normal Mucosa, No Blood Throat/Mouth: Normal Inspection, Normal Lips, Normal Oropharynx, Normal Voice, No Airway Compromise Head: Atraumatic, Normocephalic Neck: Normal Inspection Respiratory/Chest: No Respiratory Distress, Lungs Clear, Normal Breath Sounds, No Accessory Muscle Use Cardiovascular: Regular Rate, Rhythm, No Edema, Systolic Murmur. No: No Murmur GI/Abdominal: Normal Bowel Sounds, Soft, Non-Tender, No Distention Back Exam: Normal Inspection Extremities: Normal Inspection, Normal Range of Motion, Non-Tender, No Pedal Edema Neurological: Alert, Oriented, CN II-XII Intact, Normal Cognition, No Motor/ Sensory Deficits Psychiatric: Normal Affect, Normal Mood Skin Exam: Warm, Dry, Intact, Normal Color, No Rash Course - Vital Signs Text/Narrative:: BP systolic under 200 with the additional metoprolol tartrate dose of 50 mg po, has no OQUENDO, SOB, or CP. No dizziness. Last Recorded V/S: Last Vital Signs Temp 37.1 C 08/20/18 18:25 Pulse 72 08/20/18 19:45 Resp 16 08/20/18 18:25 BP 190/79 H 08/20/18 19:45 Pulse Ox 92 L 08/20/18 19:45 - Orders/Labs/Meds Meds: Medications Discontinued Medications Generic Name Dose Route Start Last Admin Trade Name Freq PRN Reason Stop Dose Admin Metoprolol Tartrate 50 mg 08/20/18 18:19 08/20/18 18:51 Lopressor PO 08/20/18 18:20 50 mg ONETIME ONE Administration Departure - Departure Time of Disposition: 19:50 Disposition: Home, Self-Care 01 Condition: Fair Clinical Impression: HTN, goal below 150/90 Instructions: Hypertension, [id number] Referrals: Jackelyn Hinojosa MD [Primary Care Provider] - Forms: ED Department Discharge Additional Instructions: Starting tomorrow morning increase your metoprolol succinate(Toprol XL) to 150 mg every 24 hrs. Stay in communication with your primary regarding further changes in her BP regimen. Needs to be seen in the ER for headache, chest pains , or shortness of breath, or stroke symptoms.
[2018-08-20 19:46] VITALS: BP 190/79
== END 2018-08-20 20:13 | disposition home or self-care (01) ==
LOC: JP.ED 16:59
DX: I10 Essential (primary) hypertension (principal); Z88.8 Allergy status to other drugs, medicaments and biological substances; Z79.899 Other long term (current) drug therapy
CPT/HCPCS: 99282; A9270

== ENCOUNTER 2018-08-26 12:16 | Emergency (ER) | payer MEDICARE, BC ==
[2018-08-26 15:04] VITALS: BP 185/79
--- NOTE | 2018-08-26 15:13 | CR ---
CHEST: Portable CLINICAL HISTORY:Leukocytosis COMPARISON:08/13/2018 FINDINGS: Heart size and pulmonary vascularity are normal. Patient has a permanent cardiac pacer in place. Lung montague are clear. Impression: Prior cardiac pacer No acute cardiopulmonary process or significant change from prior study
--- NOTE | 2018-08-26 15:37 | EDM.PDOC ---
ED HPI GENERAL MEDICAL PROBLEM - General Chief Complaint: General Stated Complaint: POSSIBLE STROKE Time Seen by Provider: 08/26/18 13:10 - History of Present Illness INITIAL COMMENTS - FREE TEXT/NARRATIVE: 82-year-old female has a history of poorly controlled hypertension. She had a systolic blood pressure of over 200 this morning and was complaining of some headache in the mid forehead area as well as a little bit of tingling of the left wrist. She was told by her primary provider to come to the emergency room. The time she reached the emergency room her blood pressures came down to 180/60 and she was symptom free. She was hungry and wanted some food. She does have a history of COPD and is oxygen dependent on 3 L. Also has chronic kidney disease and CHF. She denies any chest pain or shortness of breath. - Related Data Allergies Allergy/AdvReac Type Severity Reaction Status Date / Time chloroxine [From Capitrol] Allergy Hives Verified 08/26/18 12:37 Home Meds: Home Meds Aspirin [Malachi Chewable] 81 mg PO DAILY 09/14/13 [History] Clopidogrel [Plavix] 75 mg PO DAILY 09/14/13 [History] Ezetimibe [Zetia] 10 mg PO DAILY 09/14/13 [History] Fish Oil/DHA/EPA [Fish Oil 1,200 MG] 1 each PO DAILY 09/14/13 [History] Furosemide [Lasix] 40 mg PO DAILY PRN 09/14/13 [History] Nitroglycerin [Nitroquick] 0.4 mg SL ASDIRECTED PRN 09/14/13 [History] atorvaSTATin Calcium [Atorvastatin Calcium] 80 mg PO BEDTIME 09/14/13 [History] traMADol [Ultram] 50 mg PO TID PRN 09/14/13 [History] Isosorbide Mononitrate [Imdur] 60 mg PO DAILY 04/04/15 [History] Albuterol [Proventil Neb Soln] 1 ampule NEB Q4HR PRN 10/02/17 [History] Albuterol/Ipratropium [Combivent Respimat] 1 puff IH QID 10/02/17 [History] Magnesium Chloride [Mag-64] 64 mg PO BID 08/20/18 [History] Metoprolol Succinate [Toprol XL 100mg] 200 mg PO DAILY 08/20/18 [History] Past Medical History HEENT History: Reports: Cataract, Impaired Vision Other HEENT History: bacteria in eye Cardiovascular History: Reports: Arrhythmia, Heart Murmur, High Cholesterol, Hypertension, [place], Pacemaker, Stents Respiratory History: Reports: COPD, Sleep Apnea Other Respiratory History: home oxygen 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 History: Reports: None Genitourinary History: Reports: Acute Renal Failure [employer] History: Reports: Musculoskeletal History: Reports: Back Pain, Chronic, Fracture, Other (See Below ) Other Musculoskeletal History: steroid injections into both knees as needed Endocrine/Metabolic History: Reports: Obesity/BMI 30+ Hematologic History: Reports: Anticoagulation Therapy Oncologic (Cancer) History: Reports: Other (See Below) Other Oncologic History: skin cancer Dermatologic History: Reports: Benign Melanoma Other Dermatologic History: "bumps" [employer] will look at - Infectious Disease History Infectious Disease History: Reports: Chicken Pox, Measles, Mumps - Past Surgical History HEENT Surgical History: Reports: Cataract Surgery Cardiovascular Surgical History: Reports: Carotid Endarterectomy, Pacer GI Surgical History: Reports: Appendectomy Dermatological Surgical History: Reports: None Social & Family History - Tobacco Use Smoking Status *Q: Never Smoker - Caffeine Use Caffeine Use: Reports: None - Recreational Drug Use Recreational Drug Use: No ED ROS GENERAL - Review of Systems Review Of Systems: See Below Constitutional: Reports: No Symptoms HEENT: Reports: No Symptoms Respiratory: Reports: No Symptoms Cardiovascular: Reports: No Symptoms GI/Abdominal: Reports: No Symptoms : Reports: No Symptoms Neurological: Reports: No Symptoms ED EXAM, GENERAL - Physical Exam Exam: See Below Exam Limited By: No Limitations General Appearance: Alert Eye Exam: Bilateral Eye: PERRL Ears: Normal External Exam, Normal Canal Ear Exam: Bilateral Ear: Canal Normal, TM normal Nose: Normal Inspection Throat/Mouth: Normal Inspection Head: Atraumatic, Normocephalic, Facial Tenderness Neck: Supple, Non-Tender Respiratory/Chest: No Respiratory Distress, Lungs Clear, Normal Breath Sounds Cardiovascular: Normal Peripheral Pulses, No Edema, Systolic Murmur GI/Abdominal: Normal Bowel Sounds, Non-Tender (Female) Exam: Other (No flank tenderness.) Neurological: Alert, Oriented, CN II-XII Intact, Normal Cognition, Normal Reflexes, No Motor/Sensory Deficits Course - Vital Signs Last Recorded V/S: Last Vital Signs Temp 36.7 C 08/26/18 12:41 Pulse 70 08/26/18 12:41 Resp 22 H 08/26/18 15:03 BP 185/79 H 08/26/18 15:03 Pulse Ox 91 L 08/26/18 15:03 - Orders/Labs/Meds Orders: Active Orders 24 hr Category Date Time Status EKG Documentation Completion [RC] ASDIRECTED Care 08/26/18 13:29 Active EKG 12 Lead [EK] Routine Ther 08/26/18 13:27 Ordered Labs: Laboratory Tests 08/26/18 08/26/18 08/26/18 Range/Units 13:35 13:35 15:03 WBC 11.9 H (4.5-11.0) K/uL RBC 3.99 (3.30-5.50) M/uL Hgb 11.9 L (12.0-15.0) g/dL Hct 36.3 (36.0-48.0) % MCV 91 (80-98) fL MCH 30 (27-31) pg MCHC 33 (32-36) % Plt Count 405 H (150-400) K/uL Neut % (Auto) 75 H (36-66) % Lymph % (Auto) 13 L (24-44) % [place] % (Auto) 9 H (2-6) % Eos % (Auto) 3 (2-4) % Baso % (Auto) 0 (0-1) % Sodium 139 L (140-148) mmol/L Potassium 4.6 (3.6-5.2) mmol/L Chloride 106 (100-108) mmol/L Carbon Dioxide 24 (21-32) mmol/L Anion Gap 13.6 (5.0-14.0) mmol/L BUN 12 D (7-18) mg/dL Creatinine 1.1 H (0.6-1.0) mg/dL Est Cr Clr Drug Dosing 31.49 mL/min Estimated GFR (MDRD) 47 L (>60) Glucose 104 (74-106) mg/dL Calcium 9.6 D (8.5-10.1) mg/dL Total Bilirubin 0.8 (0.2-1.0) mg/dL AST 15 (15-37) U/L ALT 20 (12-78) U/L Alkaline Phosphatase 75 (46-116) U/L Total Protein 6.7 (6.4-8.2) g/dL Albumin 3.3 L (3.4-5.0) g/dL Globulin 3.4 (2.3-3.5) g/dL Albumin/Globulin Ratio 1.0 L (1.2-2.2) Urine Color Yellow Urine Appearance Cloudy Urine pH 6.0 (4.5-8.0) Ur Specific [place] 1.015 (1.008-1.030) Urine Protein Trace (NEGATIVE) mg/dL Urine Glucose (UA) Normal (NEGATIVE) mg/dL Urine Ketones Negative (NEGATIVE) mg/dL Urine Occult Blood Negative (NEGATIVE) Urine Nitrite Negative (NEGATIVE) Urine Bilirubin Negative (NEGATIVE) Urine Urobilinogen Normal (NORMAL) mg/dL Ur Leukocyte Esterase Large (NEGATIVE) Urine RBC 0-5 (0-5) Urine WBC 10-20 H (0-5) Ur Epithelial Cells Few Amorphous Sediment Not seen Urine Bacteria Few Urine Mucus Few Departure - Departure Time of Disposition: 15:45 Disposition: Home, Self-Care 01 Condition: Good Clinical Impression: Hypertension - Discharge Information Referrals: PCP,None [Primary Care Provider] - Additional Instructions: Patient has an appointment to follow-up with her primary provider in [place] in a few days. She will stay compliant with medications. - My Orders Last 24 Hours: My Active Orders 08/26/18 13:27 EKG 12 Lead [EK] Routine 08/26/18 13:29 EKG Documentation Completion [RC] ASDIRECTED - Assessment/Plan Last 24 Hours: My Active Orders 08/26/18 13:27 EKG 12 Lead [EK] Routine 08/26/18 13:29 EKG Documentation Completion [RC] ASDIRECTED Assessment:: Patient was given a meal and had no further symptoms. She did have 10-20 WBCs in her urine however this is consistent with prior UAs and she is not having urinary symptoms. Her blood pressure has come down and she is symptom free indicating it may be related to her blood pressure.
== END 2018-08-26 16:03 | disposition home or self-care (01) ==
LOC: JP.ED 12:16
DX: I10 Essential (primary) hypertension (principal); E78.00 Pure hypercholesterolemia, unspecified; J44.9 Chronic obstructive pulmonary disease, unspecified; Z79.01 Long term (current) use of anticoagulants; Z79.899 Other long term (current) drug therapy; Z79.82 Long term (current) use of aspirin; Z88.8 Allergy status to other drugs, medicaments and biological substances
CPT/HCPCS: 36415; 71045; 71045-26; 80053; 81001; 85025; 93005; 93010; 99284-25

== ENCOUNTER 2020-02-03 12:59 | Emergency (ER) | payer MEDICARE, BC ==
[2020-02-03 13:06] VITALS: BP 144/56; PULSE 61
--- NOTE | 2020-02-03 13:31 | EDM.PDOC ---
ED HPI GENERAL MEDICAL PROBLEM - General Chief Complaint: Syncope Stated Complaint: MEDICAL VIA [place] Time Seen by Provider: 02/03/20 13:21 Source of Information: Reports: Patient, EMS, RN Notes Reviewed History Limitations: Reports: No Limitations - History of Present Illness INITIAL COMMENTS - FREE TEXT/NARRATIVE: This 84-year-old female presents emergency department today following a syncopal event at a friend's house, she admits she did not eat this morning was feeling fine sat down next thing she knew she awoke on the floor her friends describe her passing out then she hit her head on a piece of furniture on the way down. She is not complaining any pain no shortness of breath no nausea vomiting she states she feels she is at her normal self - Related Data Allergies Allergy/AdvReac Type Severity Reaction Status Date / Time chloroxine [From Capitrol] Allergy Hives Verified 02/03/20 13:06 Home Meds: Home Meds Aspirin [Malachi Chewable] 81 mg PO DAILY 09/14/13 [History] Clopidogrel [Plavix] 75 mg PO DAILY 09/14/13 [History] Ezetimibe [Zetia] 10 mg PO DAILY 09/14/13 [History] Fish Oil/DHA/EPA [Fish Oil 1,200 MG] 1 each PO DAILY 09/14/13 [History] Nitroglycerin [Nitroquick] 0.4 mg SL ASDIRECTED PRN 09/14/13 [History] atorvaSTATin Calcium [Atorvastatin Calcium] 80 mg PO BEDTIME 09/14/13 [History] traMADol [Ultram] 50 mg PO TID PRN 09/14/13 [History] Isosorbide Mononitrate [Imdur] 60 mg PO DAILY 04/04/15 [History] Albuterol [Proventil Neb Soln] 1 ampule NEB Q4HR PRN 10/02/17 [History] Albuterol/Ipratropium [Combivent Respimat] 1 puff IH QID 10/02/17 [History] Magnesium Chloride [Mag-64] 64 mg PO BID 08/20/18 [History] Metoprolol Succinate [Toprol XL 100mg] 200 mg PO DAILY 08/20/18 [History] Fluticasone/Umeclidin/Vilanter [Trelegy Ellipta 100-62.5-25] 1 each INH DAILY 02/03/20 [History] Past Medical History HEENT History: Reports: Cataract, Impaired Vision Other HEENT History: bacteria in eye Cardiovascular History: Reports: Arrhythmia, CAD, Heart Murmur, High Cholesterol, Hypertension, [place], Pacemaker, Stents Respiratory History: Reports: COPD, Sleep Apnea Other Respiratory History: home oxygen 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 History: Reports: None Genitourinary History: Reports: Acute Renal Failure [employer] History: Reports: Musculoskeletal History: Reports: Back Pain, Chronic, Fracture, Other (See Below) Other Musculoskeletal History: steroid injections into both knees as needed Endocrine/Metabolic History: Reports: Obesity/BMI 30+ Hematologic History: Reports: Anticoagulation Therapy Oncologic (Cancer) History: Reports: Other (See Below) Other Oncologic History: skin cancer Dermatologic History: Reports: Benign Melanoma Other Dermatologic History: "bumps" 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 - Infectious Disease History Infectious Disease History: Reports: Chicken Pox, Measles, Mumps - Past Surgical History HEENT Surgical History: Reports: Cataract Surgery Cardiovascular Surgical History: Reports: Carotid Endarterectomy, Pacer GI Surgical History: Reports: Appendectomy Dermatological Surgical History: Reports: None Social & Family History - Tobacco Use Smoking Status *Q: Former Smoker Used Tobacco, but Quit: Yes Month/Year Tobacco Last Used: 10 - Caffeine Use Caffeine Use: Reports: None ED ROS GENERAL - Review of Systems Review Of Systems: See Below Constitutional: Reports: No Symptoms HEENT: Reports: No Symptoms Respiratory: Reports: No Symptoms Cardiovascular: Reports: Syncope GI/Abdominal: Reports: No Symptoms Neurological: Reports: No Symptoms ED EXAM, HEAD INJURY - Physical Exam Exam: See Below Exam Limited By: No Limitations General Appearance: Alert, WD/WN, No Apparent Distress Head: Normocephalic, Facial Ecchymosis, Facial Swelling, Facial Tenderness Nexus Criteria: No: Posterior, Midline Cervical Tenderness, Evidence of Intoxication, Altered Level of Consciousness, Focal Neurological Deficit, Painful Distraction Injuries Eyes: Bilateral Eye: EOMI, Normal Inspection, PERRL Respiratory: No Respiratory Distress, Lungs Clear, Normal Breath Sounds, No Accessory Muscle Use, Chest Non-Tender Cardiovascular: Regular Rate, Rhythm, No Murmur Course - Vital Signs Last Recorded V/S: Last Vital Signs Temp 98 F 02/03/20 13:03 Pulse 61 02/03/20 13:03 Resp 20 02/03/20 13:03 BP 144/56 H 02/03/20 13:03 Pulse Ox 88 L 02/03/20 13:03 - Orders/Labs/Meds Labs: Laboratory Tests 02/03/20 02/03/20 Range/Units 13:39 13:39 WBC 12.4 H (4.5-11.0) K/uL RBC 4.91 (3.30-5.50) M/uL Hgb 14.8 D (12.0-15.0) g/dL Hct 46.7 (36.0-48.0) % MCV 95 (80-98) fL MCH 30 (27-31) pg MCHC 32 (32-36) % Plt Count 298 (150-400) K/uL Neut % (Auto) 78 H (36-66) % Lymph % (Auto) 10 L (24-44) % [place] % (Auto) 8 H (2-6) % Eos % (Auto) 4 (2-4) % Baso % (Auto) 0 (0-1) % Sodium 144 (140-148) mmol/L Potassium 4.5 (3.6-5.2) mmol/L Chloride 107 (100-108) mmol/L Carbon Dioxide 29 (21-32) mmol/L Anion Gap 8.3 (5.0-14.0) mmol/L BUN 26 H D (7-18) mg/dL Creatinine 1.6 H (0.6-1.0) mg/dL Est Cr Clr Drug Dosing 20.88 mL/min Estimated GFR (MDRD) 31 L (>60) Glucose 118 H (74-106) mg/dL Calcium 9.5 (8.5-10.1) mg/dL Troponin I < 0.017 (0.000-0.056) ng/mL Departure - Departure Time of Disposition: 14:41 Disposition: Home, Self-Care 01 Condition: Fair Clinical Impression: Syncope Qualifiers: Syncope type: unspecified Qualified Code(s): R55 - Syncope and collapse - Discharge Information Instructions: Syncope, [id number] Referrals: PCP,None [Primary Care Provider] - Forms: ED Department Discharge Additional Instructions: Please followup with your primary care provider in 3-5 days if not better, please call return to the emergency department with worsening of symptoms. Sepsis Event Note (ED) - Evaluation Sepsis Screening Result: No Definite Risk - Focused Exam Vital Signs: Vital Signs Temp Pulse Resp BP Pulse Ox 02/03/20 13:03 98 F 61 20 144/56 H 88 L - Assessment/Plan Plan: Assessment Acuity = acute Site and laterality = syncopal event Etiology = probably related to not eating Manifestations = none Location of injury = Home Lab values = CBC unremarkable creatinine elevated 1.6 consistent with chronic renal failure stage G3 B Plan Follow-up with primary care in the next 3 to 5 days if not better This note was dictated using [employer] voice recognition software please call with any questions on syntax or grammar.
--- NOTE | 2020-02-03 14:22 | CT ---
Head wo Cont, Max Facial Sinus wo Cont CLINICAL HISTORY: Head injury COMPARISON: 2006 TECHNIQUE: Transverse scans were obtained from the base of the skull through the vertex without IV contrast on a multislice, multidetector CT scanner. Auto dosage reduction and iterative reconstruction techniques employed. FINDINGS: No focal abnormal parenchymal densities are identified. There is no mass effect, hemorrhage, or extraaxial collection. There is some periventricular and subcortical lucency. The basal cisterns and sulci over the convexities are prominent. The ventricles are prominent. IMPRESSION: Age-related atrophy Chronic ischemic microvascular changes No acute intracranial abnormalities Head wo Cont, Max Facial Sinus wo Cont : TECHNIQUE: Axial tomographic images were obtained from the upper calvarium through the upper neck, without iodinated contrast enhancement. Auto dosage reduction and iterative reconstruction techniques employed. FINDINGS: The paranasal sinuses are clear. The orbits have normal contour. No bony fractures identified. Fat planes are well preserved. Survey metacarpal arteries are intact. Nasal bones are intact. Anterior nasal spine has a normal contour. Mandible is free of fracture IMPRESSION: No fracture identified
== END 2020-02-03 15:09 | disposition home or self-care (01) ==
LOC: JP.ED 12:59
DX: R55 Syncope and collapse (principal); I25.10 Atherosclerotic heart disease of native coronary artery without angina pectoris; E78.00 Pure hypercholesterolemia, unspecified; I10 Essential (primary) hypertension; I25.2 Old myocardial infarction; J44.9 Chronic obstructive pulmonary disease, unspecified; E66.9 Obesity, unspecified; Z99.81 Dependence on supplemental oxygen; Z87.891 Personal history of nicotine dependence; Z68.31 Body mass index [BMI] 31.0-31.9, adult; Z79.82 Long term (current) use of aspirin; Z79.899 Other long term (current) drug therapy; Z95.5 Presence of coronary angioplasty implant and graft; Z79.02 Long term (current) use of antithrombotics/antiplatelets; Z91.048 Other nonmedicinal substance allergy status
CPT/HCPCS: 36415; 70450; 70450-26; 70486; 70486-26; 80048; 84484; 85025; 99283; 99285-25

== ENCOUNTER 2020-02-10 15:16 | Emergency (ER) | payer MEDICARE, BC ==
[2020-02-10] MEDS ORDERED: methylPREDNISolone Sodium Succinate 125 MG/2 ML SDV IVPUSH ONE (15:34)
--- NOTE | 2020-02-10 16:28 | EDM.PDOC ---
ED HPI GENERAL MEDICAL PROBLEM - General Chief Complaint: Syncope Stated Complaint: MEDICAL Time Seen by Provider: 02/10/20 16:22 Source of Information: Reports: Patient History Limitations: Reports: No Limitations, Altered Mental Status - History of Present Illness INITIAL COMMENTS - FREE TEXT/NARRATIVE: 84 years old female patient brought in by her friend for evaluation. History collected from her friend, and her daughter because of the patient altered mental status. Patient was going out with her friend and suddenly became unresponsive. Her daughter stated that the patient had similar episodes every 1- 2 month and usually recover within 30-45 minutes. No report of any cough or fever. No report of any chest pain. No report of any trauma or injury. Patient arrived to the ER, altered mental status, less responsive. O2 sats 70% on her home 3 L of oxygen. Blood pressure has been stable. Afebrile. - Related Data Allergies Allergy/AdvReac Type Severity Reaction Status Date / Time chloroxine [From Capitrol] Allergy Hives Verified 02/03/20 13:06 Home Meds: Home Meds Aspirin [Malachi Chewable] 81 mg PO DAILY 09/14/13 [History] Clopidogrel [Plavix] 75 mg PO DAILY 09/14/13 [History] Ezetimibe [Zetia] 10 mg PO DAILY 09/14/13 [History] Fish Oil/DHA/EPA [Fish Oil 1,200 MG] 1 each PO DAILY 09/14/13 [History] Nitroglycerin [Nitroquick] 0.4 mg SL ASDIRECTED PRN 09/14/13 [History] atorvaSTATin Calcium [Atorvastatin Calcium] 80 mg PO BEDTIME 09/14/13 [History] traMADol [Ultram] 50 mg PO TID PRN 09/14/13 [History] Isosorbide Mononitrate [Imdur] 60 mg PO DAILY 04/04/15 [History] Albuterol [Proventil Neb Soln] 1 ampule NEB Q4HR PRN 10/02/17 [History] Albuterol/Ipratropium [Combivent Respimat] 1 puff IH QID 10/02/17 [History] Magnesium Chloride [Mag-64] 64 mg PO BID 08/20/18 [History] Metoprolol Succinate [Toprol XL 100mg] 200 mg PO DAILY 08/20/18 [History] Fluticasone/Umeclidin/Vilanter [Trelegy Ellipta 100-62.5-25] 1 each INH DAILY 02/03/20 [History] Past Medical History HEENT History: Reports: Cataract, Impaired Vision Other HEENT History: bacteria in eye Cardiovascular History: Reports: Arrhythmia, CAD, Heart Murmur, High Cholesterol, Hypertension, [place], Pacemaker, Stents Respiratory History: Reports: COPD, Sleep Apnea Other Respiratory History: home oxygen 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 History: Reports: None Genitourinary History: Reports: Acute Renal Failure 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: Musculoskeletal History: Reports: Back Pain, Chronic, Fracture, Other (See Below) Other Musculoskeletal History: steroid injections into both knees as needed Endocrine/Metabolic History: Reports: Obesity/BMI 30+ Hematologic History: Reports: Anticoagulation Therapy Oncologic (Cancer) History: Reports: Other (See Below) Other Oncologic History: skin cancer Dermatologic History: Reports: Benign Melanoma Other Dermatologic History: "bumps" 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 - Physical Exam Exam: See Below Exam Limited By: Altered Mental Status General Appearance: Lethargic, Obtunded. No: Severe Distress Eye Exam: Bilateral Eye: EOMI, PERRL Nose: Normal Inspection, Normal Mucosa, No Blood Head Exam: Atraumatic, Normocephalic. No: Scalp Lacerations Neck: Normal Inspection, Supple, Non-Tender, Full Range of Motion Respiratory/Chest: Respiratory Distress, Decreased Breath Sounds, Wheezing. No: Crackles, Stridor, Retractions Cardiovascular: Normal Peripheral Pulses, Regular Rate, Rhythm, No Edema, No Gallop, No Murmur, No Rub GI/Abdominal: Normal Bowel Sounds, Soft, Non-Tender, No Organomegaly, No Distention, No Abnormal Bruit, No Mass Neuro Exam (Abbreviated): Confused, Disoriented, Slow to Respond (Initially the patient was confused and less responsive then gradually became more responsive, alert and oriented) Extremities: Normal Inspection, Other (Trace lower extremity edema) Skin Exam: Warm, Dry, Intact, Normal Color, No Rash Course - Vital Signs Last Recorded V/S: Last Vital Signs Temp 35.9 C L 02/10/20 15:16 Pulse 60 02/10/20 17:23 Resp 15 02/10/20 17:11 BP 104/60 02/10/20 17:23 Pulse Ox 90 L 02/10/20 17:23 - Orders/Labs/Meds Orders: Active Orders 24 hr Category Date Time Status Chest 1V Frontal [CR] Urgent Exams 02/10/20 15:30 Taken CULTURE BLOOD [BC] Urgent Lab 02/10/20 15:40 Received CULTURE BLOOD [BC] Urgent Lab 02/10/20 15:45 Received Blood Culture x2 Reflex Set [OM.PC] Urgent Oth 02/10/20 15:30 Ordered EKG 12 Lead [EK] Urgent Ther 02/10/20 15:43 Ordered Labs: Laboratory Tests 02/10/20 02/10/20 02/10/20 Range/Units 15:25 15:25 15:25 WBC 14.3 H (4.5-11.0) K/uL RBC 4.97 (3.30-5.50) M/uL Hgb 15.6 H (12.0-15.0) g/dL Hct 48.0 (36.0-48.0) % MCV 97 (80-98) fL MCH 31 (27-31) pg MCHC 33 (32-36) % Plt Count 337 (150-400) K/uL Neut % (Auto) 63 (36-66) % Lymph % (Auto) 23 L (24-44) % Harper % (Auto) 11 H (2-6) % Eos % (Auto) 3 (2-4) % Baso % (Auto) 1 (0-1) % PT 11.0 (9.5-12.0) sec INR 1.01 (0.80-1.20) D-Dimer, Quantitative 875 H (0.0-400.0) ng/mL Puncture Site ABG pH (7.350-7.450) ABG pCO2 (35.0-42.0) mmHg ABG pO2 (75.0-100.0) mmHg ABG HCO3 (22.0-26.0) mmol/L ABG Total CO2 (21.0-25.0) mmol/L ABG O2 Saturation (95.0-98.0) % ABG O2 Content (15.0-23.0) %vol ABG Base Excess mm/L ABG Hemoglobin (12.0-16.0) g/dL ABG Oxyhemoglobin % ABG Carboxyhemoglobin (0.0-1.6) % ABG Methemoglobin % Alvin Test O2 Delivery Device Sodium (140-148) mmol/L Potassium (3.6-5.2) mmol/L Chloride (100-108) mmol/L Carbon Dioxide (21-32) mmol/L Anion Gap (5.0-14.0) mmol/L BUN (7-18) mg/dL Creatinine (0.6-1.0) mg/dL Est Cr Clr Drug Dosing mL/min Estimated GFR (MDRD) (>60) Glucose (74-106) mg/dL Lactic Acid (0.4-2.0) mmol/L Calcium (8.5-10.1) mg/dL Magnesium (1.8-2.4) mg/dL Total Bilirubin (0.2-1.0) mg/dL AST (15-37) U/L ALT (12-78) U/L Alkaline Phosphatase (46-116) U/L Ammonia (11-32) mmol/L Troponin I (0.000-0.056) ng/mL C-Reactive Protein (0.0-0.3) mg/dL NT-Pro-B Natriuret Pep (5-450) pg/mL Total Protein (6.4-8.2) g/dL Albumin (3.4-5.0) g/dL Globulin (2.3-3.5) g/dL Albumin/Globulin Ratio (1.2-2.2) Urine Color (YELLOW) Urine Appearance (CLEAR) Urine pH (5.0-8.0) Ur Specific [place] (1.008-1.030) Urine Protein (NEGATIVE) mg/dL Urine Glucose (UA) (NEGATIVE) mg/dL Urine Ketones (NEGATIVE) mg/dL Urine Occult Blood (NEGATIVE) Urine Nitrite (NEGATIVE) Urine Bilirubin (NEGATIVE) Urine Urobilinogen (0.2-1.0) EU/dL Ur Leukocyte Esterase (NEGATIVE) Urine RBC (0-5) Urine WBC (0-5) Ur Epithelial Cells Amorphous Sediment Urine Bacteria Urine Mucus Ethyl Alcohol mg/dL SARS-CoV-2 RNA (MELANIE) (NEGATIVE) 02/10/20 02/10/20 02/10/20 Range/Units 15:25 15:25 15:25 WBC (4.5-11.0) K/uL RBC (3.30-5.50) M/uL Hgb (12.0-15.0) g/dL Hct (36.0-48.0) % MCV (80-98) fL MCH (27-31) pg MCHC (32-36) % Plt Count (150-400) K/uL Neut % (Auto) (36-66) % Lymph % (Auto) (24-44) % Harper % (Auto) (2-6) % Eos % (Auto) (2-4) % Baso % (Auto) (0-1) % PT (9.5-12.0) sec INR (0.80-1.20) D-Dimer, Quantitative (0.0-400.0) ng/mL Puncture Site ABG pH (7.350-7.450) ABG pCO2 (35.0-42.0) mmHg ABG pO2 (75.0-100.0) mmHg ABG HCO3 (22.0-26.0) mmol/L ABG Total CO2 (21.0-25.0) mmol/L ABG O2 Saturation (95.0-98.0) % ABG O2 Content (15.0-23.0) %vol ABG Base Excess mm/L ABG Hemoglobin (12.0-16.0) g/dL ABG Oxyhemoglobin % ABG Carboxyhemoglobin (0.0-1.6) % ABG Methemoglobin % Alvin Test O2 Delivery Device Sodium 140 (140-148) mmol/L Potassium 3.9 (3.6-5.2) mmol/L Chloride 102 (100-108) mmol/L Carbon Dioxide 20 L (21-32) mmol/L Anion Gap 21.9 H (5.0-14.0) mmol/L BUN 24 H (7-18) mg/dL Creatinine 1.9 H (0.6-1.0) mg/dL Est Cr Clr Drug Dosing 17.57 mL/min Estimated GFR (MDRD) 25 L (>60) Glucose 200 H (74-106) mg/dL Lactic Acid 8.0 H (0.4-2.0) mmol/L Calcium 9.0 (8.5-10.1) mg/dL Magnesium 2.7 H D (1.8-2.4) mg/dL Total Bilirubin 0.8 (0.2-1.0) mg/dL AST 23 (15-37) U/L ALT 39 D (12-78) U/L Alkaline Phosphatase 98 (46-116) U/L Ammonia 15 (11-32) mmol/L Troponin I 0.245 H* (0.000-0.056) ng/mL C-Reactive Protein 0.09 (0.0-0.3) mg/dL NT-Pro-B Natriuret Pep (5-450) pg/mL Total Protein 7.0 (6.4-8.2) g/dL Albumin 3.3 L (3.4-5.0) g/dL Globulin 3.7 H (2.3-3.5) g/dL Albumin/Globulin Ratio 0.9 L (1.2-2.2) Urine Color (YELLOW) Urine Appearance (CLEAR) Urine pH (5.0-8.0) Ur Specific [place] (1.008-1.030) Urine Protein (NEGATIVE) mg/dL Urine Glucose (UA) (NEGATIVE) mg/dL Urine Ketones (NEGATIVE) mg/dL Urine Occult Blood (NEGATIVE) Urine Nitrite (NEGATIVE) Urine Bilirubin (NEGATIVE) Urine Urobilinogen (0.2-1.0) EU/dL Ur Leukocyte Esterase (NEGATIVE) Urine RBC (0-5) Urine WBC (0-5) Ur Epithelial Cells Amorphous Sediment Urine Bacteria Urine Mucus Ethyl Alcohol mg/dL SARS-CoV-2 RNA (MELANIE) (NEGATIVE) 02/10/20 02/10/20 02/10/20 Range/Units 15:25 15:25 15:30 WBC (4.5-11.0) K/uL RBC (3.30-5.50) M/uL Hgb (12.0-15.0) g/dL Hct (36.0-48.0) % MCV (80-98) fL MCH (27-31) pg MCHC (32-36) % Plt Count (150-400) K/uL Neut % (Auto) (36-66) % Lymph % (Auto) (24-44) % Harper % (Auto) (2-6) % Eos % (Auto) (2-4) % Baso % (Auto) (0-1) % PT (9.5-12.0) sec INR (0.80-1.20) D-Dimer, Quantitative (0.0-400.0) ng/mL Puncture Site Rt.radial ABG pH 7.306 L (7.350-7.450) ABG pCO2 34.1 L (35.0-42.0) mmHg ABG pO2 121.0 H (75.0-100.0) mmHg ABG HCO3 16.5 L (22.0-26.0) mmol/L ABG Total CO2 14.6 L (21.0-25.0) mmol/L ABG O2 Saturation 97.5 (95.0-98.0) % ABG O2 Content 20.8 (15.0-23.0) %vol ABG Base Excess -8.5 mm/L ABG Hemoglobin 15.4 (12.0-16.0) g/dL ABG Oxyhemoglobin 95.7 % ABG Carboxyhemoglobin 1.1 (0.0-1.6) % ABG Methemoglobin 0.7 % Alvin Test Passed O2 Delivery Device Bipap Sodium (140-148) mmol/L Potassium (3.6-5.2) mmol/L Chloride (100-108) mmol/L Carbon Dioxide (21-32) mmol/L Anion Gap (5.0-14.0) mmol/L BUN (7-18) mg/dL Creatinine (0.6-1.0) mg/dL Est Cr Clr Drug Dosing mL/min Estimated GFR (MDRD) (>60) Glucose (74-106) mg/dL Lactic Acid (0.4-2.0) mmol/L Calcium (8.5-10.1) mg/dL Magnesium (1.8-2.4) mg/dL Total Bilirubin (0.2-1.0) mg/dL AST (15-37) U/L ALT (12-78) U/L Alkaline Phosphatase (46-116) U/L Ammonia (11-32) mmol/L Troponin I (0.000-0.056) ng/mL C-Reactive Protein (0.0-0.3) mg/dL NT-Pro-B Natriuret Pep 65140 H (5-450) pg/mL Total Protein (6.4-8.2) g/dL Albumin (3.4-5.0) g/dL Globulin (2.3-3.5) g/dL Albumin/Globulin Ratio (1.2-2.2) Urine Color (YELLOW) Urine Appearance (CLEAR) Urine pH (5.0-8.0) Ur Specific [place] (1.008-1.030) Urine Protein (NEGATIVE) mg/dL Urine Glucose (UA) (NEGATIVE) mg/dL Urine Ketones (NEGATIVE) mg/dL Urine Occult Blood (NEGATIVE) Urine Nitrite (NEGATIVE) Urine Bilirubin (NEGATIVE) Urine Urobilinogen (0.2-1.0) EU/dL Ur Leukocyte Esterase (NEGATIVE) Urine RBC (0-5) Urine WBC (0-5) Ur Epithelial Cells Amorphous Sediment Urine Bacteria Urine Mucus Ethyl Alcohol < 3 mg/dL SARS-CoV-2 RNA (MELANIE) (NEGATIVE) 02/10/20 02/10/20 Range/Units 17:29 17:35 WBC (4.5-11.0) K/uL RBC (3.30-5.50) M/uL Hgb (12.0-15.0) g/dL Hct (36.0-48.0) % MCV (80-98) fL MCH (27-31) pg MCHC (32-36) % Plt Count (150-400) K/uL Neut % (Auto) (36-66) % Lymph % (Auto) (24-44) % Harper % (Auto) (2-6) % Eos % (Auto) (2-4) % Baso % (Auto) (0-1) % PT (9.5-12.0) sec INR (0.80-1.20) D-Dimer, Quantitative (0.0-400.0) ng/mL Puncture Site ABG pH (7.350-7.450) ABG pCO2 (35.0-42.0) mmHg ABG pO2 (75.0-100.0) mmHg ABG HCO3 (22.0-26.0) mmol/L ABG Total CO2 (21.0-25.0) mmol/L ABG O2 Saturation (95.0-98.0) % ABG O2 Content (15.0-23.0) %vol ABG Base Excess mm/L ABG Hemoglobin (12.0-16.0) g/dL ABG Oxyhemoglobin % ABG Carboxyhemoglobin (0.0-1.6) % ABG Methemoglobin % Alvin Test O2 Delivery Device Sodium (140-148) mmol/L Potassium (3.6-5.2) mmol/L Chloride (100-108) mmol/L Carbon Dioxide (21-32) mmol/L Anion Gap (5.0-14.0) mmol/L BUN (7-18) mg/dL Creatinine (0.6-1.0) mg/dL Est Cr Clr Drug Dosing mL/min Estimated GFR (MDRD) (>60) Glucose (74-106) mg/dL Lactic Acid (0.4-2.0) mmol/L Calcium (8.5-10.1) mg/dL Magnesium (1.8-2.4) mg/dL Total Bilirubin (0.2-1.0) mg/dL AST (15-37) U/L ALT (12-78) U/L Alkaline Phosphatase (46-116) U/L Ammonia (11-32) mmol/L Troponin I (0.000-0.056) ng/mL C-Reactive Protein (0.0-0.3) mg/dL NT-Pro-B Natriuret Pep (5-450) pg/mL Total Protein (6.4-8.2) g/dL Albumin (3.4-5.0) g/dL Globulin (2.3-3.5) g/dL Albumin/Globulin Ratio (1.2-2.2) Urine Color Yellow (YELLOW) Urine Appearance Cloudy A (CLEAR) Urine pH 6.5 (5.0-8.0) Ur Specific [place] 1.025 (1.008-1.030) Urine Protein 100 H (NEGATIVE) mg/dL Urine Glucose (UA) Negative (NEGATIVE) mg/dL Urine Ketones Negative (NEGATIVE) mg/dL Urine Occult Blood Trace-intact H (NEGATIVE) Urine Nitrite Positive H (NEGATIVE) Urine Bilirubin Negative (NEGATIVE) Urine Urobilinogen 0.2 (0.2-1.0) EU/dL Ur Leukocyte Esterase Small H (NEGATIVE) Urine RBC 10-20 H (0-5) Urine WBC Semi-packed H (0-5) Ur Epithelial Cells Few Amorphous Sediment Not seen Urine Bacteria Many Urine Mucus Not seen Ethyl Alcohol mg/dL SARS-CoV-2 RNA (MELANIE) Negative (NEGATIVE) Meds: Medications Discontinued Medications Generic Name Dose Route Start Last Admin Trade Name Freq PRN Reason Stop Dose Admin Aspirin 324 mg 02/10/20 17:12 02/10/20 17:24 Aspirin PO 02/10/20 17:13 324 mg ONETIME ONE Administration Heparin Sodium/Dextrose 25,000 units in 500 mls @ 19.44 mls/hr 02/10/20 17:15 02/10/20 17:24 Heparin 25,000 Units In D5w 500 Ml IV 12 units/kg/hr TITRATE ERICKA 19.44 mls/hr Administration Protocol 12 UNITS/KG/HR Methylprednisolone Sodium Succinate 125 mg 02/10/20 15:34 02/10/20 16:25 Solu-Medrol IVPUSH 02/10/20 15:35 125 mg ONETIME ONE Administration Departure - Departure Time of Disposition: 17:00 Disposition: DC/Tfer to Acute Hospital 02 Condition: Critical Clinical Impression: Acute respiratory failure, Acute renal failure, Non-STEMI (non-ST elevated myocardial infarction) - Discharge Information Referrals: PCP,None [Primary Care Provider] - Forms: ED Department Discharge Sepsis Event Note (ED) - Evaluation Sepsis Screening Result: No Definite Risk - Focused Exam Vital Signs: Vital Signs Temp Pulse Resp BP Pulse Ox 02/10/20 17:23 60 104/60 90 L 02/10/20 17:11 60 15 118/61 92 L 02/10/20 16:55 60 21 H 120/45 L 96 02/10/20 16:38 60 22 H 107/53 L 89 L 02/10/20 16:17 63 21 H 105/56 L 86 L 02/10/20 16:01 76 23 H 112/64 84 L 02/10/20 15:46 60 26 H 130/66 94 L 02/10/20 15:32 60 171/70 H 94 L 02/10/20 15:20 71 33 H 107/63 78 L 02/10/20 15:16 35.9 C L 73 20 107/73 86 L - My Orders Last 24 Hours: My Active Orders 02/10/20 15:30 Chest 1V Frontal [CR] Urgent Blood Culture x2 Reflex Set [OM.PC] Urgent 02/10/20 15:40 CULTURE BLOOD [BC] Urgent 02/10/20 15:43 EKG 12 Lead [EK] Urgent 02/10/20 15:45 CULTURE BLOOD [BC] Urgent - Assessment/Plan Last 24 Hours: My Active Orders 02/10/20 15:30 Chest 1V Frontal [CR] Urgent Blood Culture x2 Reflex Set [OM.PC] Urgent 02/10/20 15:40 CULTURE BLOOD [BC] Urgent 02/10/20 15:43 EKG 12 Lead [EK] Urgent 02/10/20 15:45 CULTURE BLOOD [BC] Urgent
--- NOTE | 2020-02-10 16:32 | CRLCT ---
INDICATION: Unresponsive TECHNIQUE: CT head without contrast. COMPARISON: 02/03/2020 FINDINGS: CSF spaces: Within normal limits for age. Brain parenchyma: The stoll-white differentiation is normal. No sign of mass, hemorrhage, or midline shift. Periventricular white matter changes consistent chronic microvascular disease. Skull base and calvarium: The visualized paranasal sinuses and mastoid air cells demonstrate no acute or significant findings. The visualized orbits are grossly unremarkable. No skull fractures. IMPRESSION: No acute intracranial abnormalities. Periventricular white matter changes consistent chronic microvascular disease. Diffuse volume loss Dictated by Adolfo Pagan MD @ 02/10/2020 4:30:06 PM Please note that all CT scans at this facility use dose modulation, iterative reconstruction, and/or weight-based dosing when appropriate to reduce radiation dose to as low as reasonably achievable. Dictated by: Adolfo Pagan MD @ 02/10/2020 16:30:11 (Electronically Signed)
[2020-02-10 16:39] VITALS: PULSE 60
[2020-02-10] MEDS ORDERED: Aspirin 81 MG Tab.Chew PO ONE (17:12)
[2020-02-10] MEDS ORDERED: Heparin Sodium/D5W 25,000 UNITS/500 ML BAG IV SCH (17:15)
[2020-02-10 17:23] VITALS: BP 104/60
--- NOTE | 2020-02-11 09:06 | CR ---
CHEST: Portable 02/10/2020 at 1605 CLINICAL HISTORY:SOB COMPARISON:08/26/2018 FINDINGS: The heart is enlarged. Patient has permanent cardiac pacer. From a vascularity is mildly cephalized. Lung markings are exaggerated by less than optimal inspiration in lordotic positioning. There are atherosclerotic changes in the aorta. IMPRESSION: Limited study Cardiomegaly with mild vascular cephalization may represent some mild cardiac decompensation Permanent cardiac pacer No infiltrates are seen.
== END 2020-02-10 17:56 ==
LOC: JP.ED 15:16
DX: I21.4 Non-ST elevation (NSTEMI) myocardial infarction (principal); J96.00 Acute respiratory failure, unspecified whether with hypoxia or hypercapnia; N17.9 Acute kidney failure, unspecified; J44.9 Chronic obstructive pulmonary disease, unspecified; I10 Essential (primary) hypertension; I25.10 Atherosclerotic heart disease of native coronary artery without angina pectoris; E78.00 Pure hypercholesterolemia, unspecified; I25.2 Old myocardial infarction; E66.9 Obesity, unspecified; Z95.5 Presence of coronary angioplasty implant and graft; Z68.31 Body mass index [BMI] 31.0-31.9, adult; Z20.828 Contact with and (suspected) exposure to other viral communicable diseases; Z79.02 Long term (current) use of antithrombotics/antiplatelets; Z88.3 Allergy status to other anti-infective agents; Z90.49 Acquired absence of other specified parts of digestive tract; Z79.82 Long term (current) use of aspirin; Z79.899 Other long term (current) drug therapy
CPT/HCPCS: 36415; 36600; 70450; 71045; 80053; 80307; 81001; 82140; 82803; 83605; 83735; 83880; 84484; 85025; 85379; 85610; 86140; 87040; 93005; 96374; 96375; 99285; A9270; J1644; J2930; U0002

== ENCOUNTER 2020-02-27 12:08 | Emergency (ER) | payer MEDICARE, BC ==
[2020-02-27 12:34] VITALS: BP 144/57; PULSE 65
--- NOTE | 2020-02-27 13:00 | EDM.PDOC ---
ED HPI GENERAL MEDICAL PROBLEM - General Chief Complaint: Respiratory Problem Stated Complaint: low O2 level Time Seen by Provider: 02/27/20 12:40 Source of Information: Reports: Patient, Family, Old Records History Limitations: Reports: Other (incomplete old records) - History of Present Illness INITIAL COMMENTS - FREE TEXT/NARRATIVE: 84 yo female presents accompanied by her daughter for mild SOB, colored sputum, and possible UTI. Was recently in the hospital in [place] for aortic stenosis, and a non-STEMI. She had some respiratory failure also during that admission. She has since followed up with her primary in [place]. The patient lives here in [place] and they were apparently not aware that we cannot see her doctor's clinic notes. There has not been pain or fever. She is on oxygen around the clock and significantly desats when sleeping. Since her last hospitalization has changed her code status to DNR. Today they hope to be able to go home again. Onset: Gradual Onset Date: 02/25/20 Duration: Day(s): (~2), Getting Worse Location: Reports: Chest (breathing) Quality: Reports: Other (pain not reported) Severity: Moderate Improves with: Reports: None Worsens with: Reports: Other (? time) Context: Reports: Other (See HPI) Associated Symptoms: Reports: Cough, Shortness of Breath. Denies: Fever/Chills Treatments REVIEW RN: Reports: Other (see below) (none) - Related Data Allergies Allergy/AdvReac Type Severity Reaction Status Date / Time chloroxine [From Capitrol] Allergy Severe Hives Verified 02/27/20 12:34 Home Meds: Home Meds Aspirin [Malachi Chewable] 81 mg PO DAILY 09/14/13 [History] Clopidogrel [Plavix] 75 mg PO DAILY 09/14/13 [History] Ezetimibe [Zetia] 10 mg PO DAILY 09/14/13 [History] Fish Oil/DHA/EPA [Fish Oil 1,200 MG] 1 each PO DAILY 09/14/13 [History] Nitroglycerin [Nitroquick] 0.4 mg SL ASDIRECTED PRN 09/14/13 [History] atorvaSTATin Calcium [Atorvastatin Calcium] 80 mg PO BEDTIME 09/14/13 [History] traMADol [Ultram] 50 mg PO TID PRN 09/14/13 [History] Isosorbide Mononitrate [Imdur] 120 mg PO DAILY 04/04/15 [History] Albuterol [Proventil Neb Soln] 1 ampule NEB Q4HR PRN 10/02/17 [History] Albuterol/Ipratropium [Combivent Respimat] 1 puff IH QID 10/02/17 [History] Magnesium Chloride [Mag-64] 64 mg PO BID 08/20/18 [History] Metoprolol Succinate [Toprol XL 100mg] 200 mg PO DAILY 08/20/18 [History] Fluticasone/Umeclidin/Vilanter [Trelegy Ellipta 100-62.5-25] 1 each INH DAILY 02/03/20 [History] Doxycycline [Vibra-Tabs] 100 mg PO Q12HR #14 tab 02/27/20 [Rx] Past Medical History HEENT History: Reports: Cataract, Impaired Vision Other HEENT History: bacteria in eye Cardiovascular History: Reports: Arrhythmia, CAD, Heart Failure, Heart Murmur, High Cholesterol, Hypertension, [place], Pacemaker, Stents Respiratory History: Reports: COPD, Sleep Apnea Other Respiratory History: home oxygen 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 History: Reports: None Genitourinary History: Reports: Acute Renal Failure [employer]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 [employer]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 History: Reports: Musculoskeletal History: Reports: Back Pain, Chronic, Fracture, Neck Pain, Chronic, Other (See Below) Other Musculoskeletal History: steroid injections into both knees as needed Endocrine/Metabolic History: Reports: Obesity/BMI 30+ Hematologic History: Reports: Anticoagulation Therapy Oncologic (Cancer) History: Reports: Other (See Below) Other Oncologic History: skin cancer Dermatologic History: Reports: Benign Melanoma Other Dermatologic History: "bumps" 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 Denies: Fever, Chills HEENT: Reports: No Symptoms Respiratory: Reports: Shortness of Breath, Cough, Sputum. Denies: Wheezing, Pleuritic Chest Pain, Hemoptysis Cardiovascular: Reports: No Symptoms. Denies: Chest Pain Endocrine: Reports: No Symptoms GI/Abdominal: Reports: No Symptoms : Reports: Frequency Musculoskeletal: Reports: No Symptoms Skin: Reports: No Symptoms Neurological: Reports: No Symptoms Psychiatric: Reports: No Symptoms ED EXAM, GENERAL - Physical Exam Exam: See Below Exam Limited By: No Limitations General Appearance: Alert, WD/WN, No Apparent Distress Eye Exam: Bilateral Eye: Normal Inspection, Periorbital Changes Ears: Normal External Exam, Normal Canal, Hearing Grossly Normal Ear Exam: Bilateral Ear: Auricle Normal, Canal Normal Nose: Normal Inspection, No Blood Throat/Mouth: Normal Inspection, Normal Lips, Normal Oropharynx, Normal Voice, No Airway Compromise Head: Atraumatic, Normocephalic Neck: Normal Inspection Respiratory/Chest: No Respiratory Distress, Lungs Clear, No Accessory Muscle Use, Decreased Breath Sounds Cardiovascular: Regular Rate, Rhythm, No Edema GI/Abdominal: Normal Bowel Sounds, Soft, Non-Tender, No Distention Back Exam: Normal Inspection. No: CVA Tenderness (R), CVA Tenderness (L) Extremities: Normal Inspection, Normal Range of Motion, Non-Tender, No Pedal Edema Neurological: Alert, Oriented, CN II-XII Intact, Normal Cognition, No Motor/Sensory Deficits Psychiatric: Normal Affect, Normal Mood Skin Exam: Warm, Dry, Intact, Normal Color, No Rash Course - Vital Signs Last Recorded V/S: Last Vital Signs Temp 37.7 C 02/27/20 12:51 Pulse 65 02/27/20 12:51 Resp 18 02/27/20 12:51 BP 144/57 H 02/27/20 12:51 Pulse Ox 90 L 02/27/20 12:51 - Orders/Labs/Meds Orders: Active Orders 24 hr Category Date Time Status Chest 2V [CR] Stat Exams 02/27/20 13:13 Taken CULTURE RESPIRATORY + SMEAR [RM] Stat Lab 02/27/20 12:54 Ordered CULTURE URINE [RM] Stat Lab 02/27/20 14:49 Ordered Labs: Laboratory Tests 02/27/20 02/27/20 02/27/20 Range/Units 13:08 13:08 14:35 WBC 12.0 H (4.5-11.0) K/uL RBC 4.51 (3.30-5.50) M/uL Hgb 13.7 (12.0-15.0) g/dL Hct 42.4 (36.0-48.0) % MCV 94 (80-98) fL MCH 30 (27-31) pg MCHC 32 (32-36) % Plt Count 250 (150-400) K/uL Neut % (Auto) 74 H (36-66) % Lymph % (Auto) 8 L (24-44) % Guthrie % (Auto) 13 H (2-6) % Eos % (Auto) 4 (2-4) % Baso % (Auto) 1 (0-1) % Sodium 141 (140-148) mmol/L Potassium 4.7 (3.6-5.2) mmol/L Chloride 106 (100-108) mmol/L Carbon Dioxide 28 (21-32) mmol/L Anion Gap 7.0 (5.0-14.0) mmol/L BUN 23 H (7-18) mg/dL Creatinine 1.5 H (0.6-1.0) mg/dL Est Cr Clr Drug Dosing 22.27 mL/min Estimated GFR (MDRD) 33 L (>60) Glucose 106 (74-106) mg/dL Calcium 8.6 (8.5-10.1) mg/dL Troponin I < 0.017 (0.000-0.056) ng/mL Urine Color Yellow (YELLOW) Urine Appearance Clear (CLEAR) Urine pH 7.0 (5.0-8.0) Ur Specific [place] 1.020 (1.008-1.030) Urine Protein Negative (NEGATIVE) mg/dL Urine Glucose (UA) Negative (NEGATIVE) mg/dL Urine Ketones Negative (NEGATIVE) mg/dL Urine Occult Blood Trace-intact H (NEGATIVE) Urine Nitrite Negative (NEGATIVE) Urine Bilirubin Negative (NEGATIVE) Urine Urobilinogen 0.2 (0.2-1.0) EU/dL Ur Leukocyte Esterase Small H (NEGATIVE) Urine RBC 0-5 (0-5) Urine WBC 10-20 H (0-5) Ur Epithelial Cells Moderate Urine Bacteria Rare - Radiology Interpretation Free Text/Narrative:: CXR-neg Departure - Departure Time of Disposition: 14:53 Disposition: Home, Self-Care 01 Condition: Fair Clinical Impression: Cystitis, Bronchitis - Discharge Information *PRESCRIPTION DRUG MONITORING PROGRAM REVIEWED*: Not Applicable *COPY OF PRESCRIPTION DRUG MONITORING REPORT IN PATIENT LIZZY: Not Applicable Prescriptions: Doxycycline [Vibra-Tabs] 100 mg PO Q12HR #14 tab Referrals: PCP,None [Primary Care Provider] - Forms: ED Department Discharge Additional Instructions: Take doxycycline every 12 hrs. Avoid taking with any antacids or dairy for 2 hrs before and after. Recheck with your provider later this week. Return as needed. Sepsis Event Note (ED) - Evaluation Sepsis Screening Result: No Definite Risk - Focused Exam Vital Signs: Vital Signs Temp Pulse Resp BP Pulse Ox 02/27/20 12:51 37.7 C 65 18 144/57 H 90 L 02/27/20 12:32 37.7 C 65 18 144/57 H 90 L - My Orders Last 24 Hours: My Active Orders 02/27/20 12:54 CULTURE RESPIRATORY + SMEAR [RM] Stat 02/27/20 13:13 Chest 2V [CR] Stat 02/27/20 14:49 CULTURE URINE [RM] Stat - Assessment/Plan Last 24 Hours: My Active Orders 02/27/20 12:54 CULTURE RESPIRATORY + SMEAR [RM] Stat 02/27/20 13:13 Chest 2V [CR] Stat 02/27/20 14:49 CULTURE URINE [RM] Stat
--- NOTE | 2020-02-28 11:13 | CR ---
CHEST: 2 view CLINICAL HISTORY:Sputum production COMPARISON:January 2020 FINDINGS: Heart is mildly enlarged. Patient has a permanent cardiac pacer. Pulmonary vascularity is normal. There are atherosclerotic changes in the aorta. There is a curvilinear density in the lateral image in the infrahilar region not seen on the PA image.. This is similar to July 2018. IMPRESSION: Cardiomegaly Permanent cardiac pacer No acute cardiopulmonary process
== END 2020-02-27 15:24 | disposition home or self-care (01) ==
LOC: JP.ED 12:08
DX: J40 Bronchitis, not specified as acute or chronic (principal); N30.90 Cystitis, unspecified without hematuria; I11.0 Hypertensive heart disease with heart failure; I50.9 Heart failure, unspecified; E78.00 Pure hypercholesterolemia, unspecified; I25.10 Atherosclerotic heart disease of native coronary artery without angina pectoris; J44.9 Chronic obstructive pulmonary disease, unspecified; I25.2 Old myocardial infarction; E66.9 Obesity, unspecified; Z88.8 Allergy status to other drugs, medicaments and biological substances; Z79.82 Long term (current) use of aspirin; Z79.02 Long term (current) use of antithrombotics/antiplatelets; Z79.899 Other long term (current) drug therapy; Z68.31 Body mass index [BMI] 31.0-31.9, adult; Z95.5 Presence of coronary angioplasty implant and graft; Z90.49 Acquired absence of other specified parts of digestive tract
CPT/HCPCS: 36415; 71046; 71046-26; 80048; 81001; 84484; 85025; 87086; 99285-25